=== PATIENT | female | born 1985 | race Caucasian/White ===

== ENCOUNTER 2017-12-15 19:33 | Emergency (ER) | payer SELFPAY ==
--- NOTE | 2017-12-15 21:28 | ER ---
Nurse's Notes [facility] Name: Norah David Age: 32 yrs Sex: Female : 1985 Arrival Date: 12/15/2017 Time: 19:39 Bed 8 Private MD: Diagnosis: Plantar fascial fibromatosis Presentation: 12/15 19:52 Presenting complaint: Patient states: Right leg pain from the knee down for the past 2 aj1 weeks. Reports the arch of her foot is hurting to where she cannot bear weight on it. Patient denies any injury to the right leg. Transition of care: patient was not received from another setting of care. Onset of symptoms was November 2017. Risk Assessment: Do you want to hurt yourself or someone else? Patient reports no desire to harm self or others. Initial Sepsis Screen: Does the patient meet any 2 criteria? No. Patient's initial sepsis screen is negative. Does the patient have a suspected source of infection? No. Patient's initial sepsis screen is negative. Care prior to arrival: None. 19:52 Method Of Arrival: Wheelchair aj1 19:52 Acuity: JOS 4 aj1 Triage Assessment: 19:57 General: Appears in no apparent distress. uncomfortable, Behavior is calm, cooperative, aj1 appropriate for age. Pain: Complains of pain in right leg Pain currently is 3 out of 10 on a pain scale. at worst was 10 out of 10 on a pain scale. Neuro: Level of Consciousness is awake, alert, obeys commands. Cardiovascular: Patient's skin is warm and dry. Respiratory: Airway is patent Respiratory effort is even, unlabored, Respiratory pattern is regular, symmetrical. Musculoskeletal: Reports pain with weight bearing. Injury Description: Patient denies injury. 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 - Social history:: Smoking status: Patient uses tobacco products, smokes one-half pack cigarettes per day, Patient/guardian denies using alcohol, street drugs, The patient lives with family. - Ebola Screening: : Patient denies travel to an Ebola-affected area in the 21 days before illness onset. - Family history:: not pertinent. Screenin:51 Abuse screen: Denies threats or abuse. Denies injuries from another. Nutritional aa1 screening: No deficits noted. Tuberculosis screening: No symptoms or risk factors identified. Fall Risk None identified. Assessment: 20:51 General: Appears in no apparent distress. comfortable, obese, Behavior is calm, aa1 cooperative, appropriate for age. Pain: Complains of pain in right foot, right ankle and right knee Pain began 2 weeks ago Aggravated by weight bearing. Neuro: Level of Consciousness is awake, alert, obeys commands, Oriented to person, place, time, situation. Respiratory: Airway is patent Respiratory effort is even, unlabored, Respiratory pattern is regular, symmetrical. GI: No signs and/or symptoms were reported involving the gastrointestinal system. : No signs and/or symptoms were reported regarding the genitourinary system. EENT: No signs and/or symptoms were reported regarding the EENT system. Derm: Skin is intact, is healthy with good turgor, Skin is pink, warm \T\ dry. Musculoskeletal: Circulation, motion, and sensation intact. Capillary refill < 3 seconds, Range of motion: intact in all extremities. Vital Signs: 19:57 BP 140 / 94; Pulse 89; Resp 20; Temp 98.9; Pulse Ox 98% on R/A; Weight 145.15 kg (R); aj1 Height 5 ft. 7 in. (170.18 cm) (R); Pain 3/10; 20:51 BP 138 / 97; Pulse 86; Resp 18; Pulse Ox 99% on R/A; aa1 19:57 Body Mass Index 50.12 (145.15 kg, 170.18 cm) aj1 ED Course: 19:39 Patient arrived in ED. ds1 19:56 Triage completed. aj1 19:57 Arm band placed on Patient placed in waiting room, Patient notified of wait time. aj1 20:48 Madeline Hernandez RN is Primary Nurse. aa1 20:49 Richard Parks MD is Attending Physician. ma2 20:51 Patient has correct armband on for positive identification. Bed in low position. Call aa1 light in reach. Pulse ox on. NIBP on. 21:37 No provider procedures requiring assistance completed. Patient did not have IV access lp1 during this emergency room visit. Administered Medications: 21:36 CANCELLED (Physician Discretion): Morton (7.5 mg-325 mg) 2 tabs PO once lp1 21:37 Drug: Morton (7.5 mg-325 mg) 1 tabs Route: PO; lp1 21:37 Follow up: Response: Medication administered at discharge. lp1 Outcome: 21:27 Discharge ordered by . ma2 21:37 Discharged to home via wheelchair, with friend. lp1 21:37 Condition: good 21:37 Discharge instructions given to patient, Instructed on discharge instructions, follow up and referral plans. medication usage, Demonstrated understanding of instructions, follow-up care, medications, Prescriptions given X 2. 21:38 Patient left the ED. lp1 Signatures: Chastity Rodriguez RN RN aj1 Madeline Hernandez RN RN aa1 Yana Peters ds1 Rosemary Robin RN RN lp1 Richard Parks MD MD ma2 Corrections: (The following items were deleted from the chart) 21:36 21:27 Morton (7.5 mg-325 mg) 2 tabs PO lp1 lp1
--- NOTE | 2017-12-15 21:28 | EDPHYS ---
Physician Documentation [facility] Name: Norah David Age: 32 yrs Sex: Female : 1985 Arrival Date: 12/15/2017 Time: 19:39 Bed 8 Private MD: ED Physician Richard Parks HPI: 12/15 21:24 This 32 yrs old Female presents to ER via Wheelchair with complaints of Foot ma2 Injury. 21:24 The patient presents with pain. The complaints affect the right foot. Context: arch ma2 pain x 5 weeks. Onset: The symptoms/episode began/occurred gradually. Associated signs and symptoms: Pertinent positives: Pertinent negatives: calf tenderness, fever, nausea, numbness, rash, swelling, tingling, vomiting, warmth, weakness. Severity of symptoms: At their worst the symptoms were moderate, in the emergency department the symptoms are unchanged. The patient has experienced similar episodes in the past. 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 - Social history:: Smoking status: Patient uses tobacco products, smokes one-half pack cigarettes per day, Patient/guardian denies using alcohol, street drugs, The patient lives with family. - Ebola Screening: : Patient denies travel to an Ebola-affected area in the 21 days before illness onset. - Family history:: not pertinent. ROS: 21:24 MS/extremity: Positive for pain, Negative for injury or acute deformity, abrasion, ma2 contusion, deformity, rash, swelling, tingling, warmth. 21:24 Constitutional: Negative for fever, chills, and weight loss, Abdomen/GI: Negative for abdominal pain, nausea, diarrhea, and constipation, Back: Negative for injury and pain, : Negative for injury, bleeding, discharge, and swelling, Skin: Negative for injury, rash, and discoloration, Psych: Negative for depression, anxiety, suicide ideation, homicidal ideation, and hallucinations, Endocrine: Negative for neck swelling, polydipsia, polyuria, polyphagia, and marked weight changes. 21:24 All other systems are negative. Exam: 21:24 Constitutional: This is a well developed, well nourished patient who is awake, alert, ma2 and in no acute distress. Chest/axilla: Normal chest wall appearance and motion. Nontender with no deformity. No lesions are appreciated. Cardiovascular: Regular rate and rhythm with a normal S1 and S2. No gallops, murmurs, or rubs. Normal PMI, no JVD. No pulse deficits. Respiratory: Lungs have equal breath sounds bilaterally, clear to auscultation and percussion. No rales, rhonchi or wheezes noted. No increased work of breathing, no retractions or nasal flaring. Abdomen/GI: Soft, non-tender, with normal bowel sounds. No distension or tympany. No guarding or rebound. No evidence of tenderness throughout. Back: No spinal tenderness. No costovertebral tenderness. Full range of motion. Skin: Warm, dry with normal turgor. Normal color with no rashes, no lesions, and no evidence of cellulitis. MS/ Extremity: Pulses equal, no cyanosis. Neurovascular intact. Full, normal range of motion. Neuro: Awake and alert, GCS 15, oriented to person, place, time, and situation. Cranial nerves II-XII grossly intact. Motor strength 5/5 in all extremities. Sensory grossly intact. Cerebellar exam normal. Normal gait. Vital Signs: 19:57 BP 140 / 94; Pulse 89; Resp 20; Temp 98.9; Pulse Ox 98% on R/A; Weight 145.15 kg (R); aj1 Height 5 ft. 7 in. (170.18 cm) (R); Pain 3/10; 20:51 BP 138 / 97; Pulse 86; Resp 18; Pulse Ox 99% on R/A; aa1 19:57 Body Mass Index 50.12 (145.15 kg, 170.18 cm) aj1 MDM: 20:50 Patient medically screened. ma2 21:24 Differential diagnosis: sprain, arthritis, gout, cellulitis. Data reviewed: vital ma2 signs, nurses notes. Counseling: I had a detailed discussion with the patient and/or guardian regarding: the historical points, exam findings, and any diagnostic results supporting the discharge/admit diagnosis, the presence of at least one elevated blood pressure reading (>120/80) during this emergency department visit, the need for outpatient follow up. Response to treatment: the patient's symptoms have markedly improved after treatment. Administered Medications: 21:36 CANCELLED (Physician Discretion): Rothsay (7.5 mg-325 mg) 2 tabs PO once lp1 21:37 Drug: Rothsay (7.5 mg-325 mg) 1 tabs Route: PO; lp1 21:37 Follow up: Response: Medication administered at discharge. lp1 Disposition: 12/15/17 21:27 Discharged to Home. Impression: Plantar fascial fibromatosis. - Condition is Stable. - Discharge Instructions: Plantar Fasciitis. - Prescriptions for Ibuprofen 600 mg Oral Tablet - take 1 tablet by ORAL route every 6 hours As needed take with food; 30 tablet. Prednisone 20 mg Oral Tablet - take 2 tablet by ORAL route once daily for 5 days; 10 tablet. - Medication Reconciliation Form, Thank You Letter, Antibiotic Education, Prescription Opioid Use form. - Follow up: Private Physician; When: Tomorrow; Reason: If symptoms return, Continuance of care. Signatures: Chastity Rodriguez RN RN aj1 Rosemary Robin RN RN lp1 Richard Parks MD MD ma2 Corrections: (The following items were deleted from the chart) 21:36 21:04 Rothsay (7.5 mg-325 mg) 2 tabs PO once ordered. ma2 lp1 21:36 21:27 Rothsay (7.5 mg-325 mg) 2 tabs PO once given. lp1 lp1 21:36 21:36 Rothsay (7.5 mg-325 mg) 2 tabs PO once ordered. lp1 lp1 21:38 21:27 12/15/2017 21:27 Discharged to Home. Impression: Plantar fascial fibromatosis. lp1 Condition is Stable. Forms are Medication Reconciliation Form, Thank You Letter, Antibiotic Education, Prescription Opioid Use. Follow up: Private Physician; When: Tomorrow; Reason: If symptoms return, Continuance of care. ma2
[2017-12-15] MEDS ORDERED: HYDROCODONE/APAP 7.5/325 MG TAB ONE (21:30)
[2017-12-15 21:43] VITALS: TEMP 98.9
[2017-12-15 21:44] VITALS: BP 138/97; O2SAT 99
== END 2017-12-15 21:38 | disposition home or self-care (01) ==
LOC: ER 19:33
DX: M72.2 Plantar fascial fibromatosis (principal); F17.210 Nicotine dependence, cigarettes, uncomplicated
CPT/HCPCS: 99283

== ENCOUNTER 2019-02-26 16:35 | Emergency (ER) | payer SELFPAY ==
--- OUTSIDE RECORDS SUMMARY | 2019-02-26 16:37 | XMS REPORT ---
:1985 [facility] Address [address] [place] [address] [address]. Dasilva[address] [place] [address] Care Team Providers Name Role Phone Unavailable Unavailable Unavailable Problems This patient has no known problems. Allergies, Adverse Reactions, Alerts This patient has no known allergies or adverse reactions. Medications This patient has no known medications.
[2019-02-26] MEDS ORDERED: DIPHENHYDRAMINE 50 MG/ML VIAL ONE (17:21)
[2019-02-26] MEDS ORDERED: dexAMETHasone 10 MG/ML VIAL ONE (17:21)
[2019-02-26] MEDS ORDERED: FAMOTIDINE 20 MG/2 ML VIAL IV ONE (17:22)
--- NOTE | 2019-02-26 18:04 | EDPHYS ---
Physician Documentation [facility] Name: Norah David Age: 33 yrs Sex: Female : 1985 Arrival Date: 02/26/2019 Time: 16:36 Bed 7 Private MD: ED Physician Eran Cole HPI: 02/26 22:38 This 33 yrs old Female presents to ER via Ambulatory with complaints of pm1 Allergic Reaction, Hand Swelling. 22:38 The patient presents with swelling to bilateral hands. Onset: The symptoms/episode pm1 began/occurred 2 day(s) ago. Associated signs and symptoms: Pertinent negatives: fever, nausea, vomiting. Possible causes: The patient has no known obvious cause for the symptoms. At home the patient or guardian has treated the symptoms with mother's zofran and steroid cream. Severity of symptoms: in the emergency department the symptoms are worse. The patient has not experienced similar symptoms in the past. The patient has not recently seen a physician. Historical: - Allergies: 16:41 No Known Drug Allergies; sv - PSHx: 16:41 Cholecystectomy; sv - Social history:: Smoking status: Patient uses tobacco products, smokes one-half pack cigarettes per day. - Ebola Screening: : No symptoms or risks identified at this time. ROS: 22:38 Constitutional: Negative for fever, chills, and weight loss, Cardiovascular: Negative pm1 for chest pain, palpitations, and edema, Respiratory: Negative for shortness of breath, cough, wheezing, and pleuritic chest pain, Abdomen/GI: Negative for abdominal pain, nausea, vomiting, diarrhea, and constipation, Back: Negative for injury and pain, MS/Extremity: Negative for injury and deformity. 22:38 Skin: Positive for swelling, of the right hand and left hand. 22:38 Neuro: Negative for numbness, tingling. Exam: 22:38 Constitutional: This is a well developed, well nourished patient who is awake, alert, pm1 and in no acute distress. Head/Face: Normocephalic, atraumatic. Neck: Trachea midline, no thyromegaly or masses palpated, and no cervical lymphadenopathy. Supple, full range of motion without nuchal rigidity, or vertebral point tenderness. No Meningismus. Chest/axilla: Normal chest wall appearance and motion. Nontender with no deformity. No lesions are appreciated. Cardiovascular: Regular rate and rhythm with a normal S1 and S2. No gallops, murmurs, or rubs. Normal PMI, no JVD. No pulse deficits. Respiratory: Lungs have equal breath sounds bilaterally, clear to auscultation and percussion. No rales, rhonchi or wheezes noted. No increased work of breathing, no retractions or nasal flaring. Back: No spinal tenderness. No costovertebral tenderness. Full range of motion. Skin: Warm, dry with normal turgor. Normal color with no rashes, no lesions, and no evidence of cellulitis. 22:38 Musculoskeletal/extremity: Extremities: grossly normal except: noted in the right hand and left hand: mild swelling. Vital Signs: 16:41 BP 153 / 76; Pulse 107; Resp 20; Temp 98.2(O); Pulse Ox 98% ; Weight 151.95 kg; Height sv 5 ft. 6 in. (167.64 cm); 18:14 BP 114 / 73; Pulse 94; Resp 16 S; Pulse Ox 96% on R/A; aa5 16:41 Body Mass Index 54.07 (151.95 kg, 167.64 cm) sv MDM: 17:07 Patient medically screened. pm1 17:55 Data reviewed: vital signs. Data interpreted: Pulse oximetry: on room air is 98 %. pm1 Interpretation: normal. Counseling: I had a detailed discussion with the patient and/or guardian regarding: the historical points, exam findings, and any diagnostic results supporting the discharge/admit diagnosis, the need for outpatient follow up, an allergy/station air traffic control specialist, a family practitioner, to return to the emergency department if symptoms worsen or persist or if there are any questions or concerns that arise at home. 17:55 Medication response: Improvement in swelling. Resolution of itching. pm1 14 17:14 Order name: IV Saline Lock; Complete Time: 17:30 pm1 Administered Medications: 17:25 Drug: Pepcid 20 mg Route: IVP; Site: right antecubital; aa5 18:00 Follow up: Response: No adverse reaction aa5 17:25 Drug: Benadryl 25 mg Route: IVP; Site: right antecubital; aa5 18:55 Follow up: Response: No adverse reaction aa5 17:26 Drug: Decadron - Dexamethasone 10 mg Route: IVP; Site: right antecubital; aa5 18:00 Follow up: Response: No adverse reaction aa5 Disposition: 02/26/19 17:58 Discharged to Home. Impression: Localized swelling, mass and lump, unspecified - bilateral hands, allergic reaction. - Condition is Stable. - Discharge Instructions: Allergy Skin Testing. - Prescriptions for Benadryl 25 mg Oral Capsule - take 1 capsule by ORAL route every 6 hours As needed; 30 tablet. Pepcid 20 mg Oral Tablet - take 1 tablet by ORAL route every 12 hours for 10 days; 20 tablet. Medrol (Simon) 4 mg Oral Tablets, Dose Pack - take 1 tablet by ORAL route as directed - follow package instructions; 1 packet. - Work release form, Family Work Release, Medication Reconciliation Form, Thank You Letter, Antibiotic Education, Prescription Opioid Use form. - Follow up: Emergency Department; When: As needed; Reason: Worsening of condition. Follow up: Private Physician; When: 2 - 3 days; Reason: Recheck today's complaints, Continuance of care, Re-evaluation by your physician. - Problem is new. - Symptoms have improved. Addendum: 02/28/2019 10:23 Co-signature as Attending Physician, Eran Cole MD I agree with the assessment and c perez plan of care. Signatures: Emely Wood RN RN sv Anderson, Corey, MD MD cha Calderon, Audri, RN RN aa5 Hema Irene NP FLORIST MANAGER pm1 Corrections: (The following items were deleted from the chart) 02/26 18:25 17:58 02/26/2019 17:58 Discharged to Home. Impression: Localized swelling, mass and aa5 lump, unspecified - bilateral hands, allergic reaction. Condition is Stable. Forms are Medication Reconciliation Form, Thank You Letter, Antibiotic Education, Prescription Opioid Use. Follow up: Emergency Department; When: As needed; Reason: Worsening of condition. Follow up: Private Physician; When: 2 - 3 days; Reason: Recheck today's complaints, Continuance of care, Re-evaluation by your physician. Problem is new. Symptoms have improved. pm1
--- NOTE | 2019-02-26 18:04 | ER ---
Nurse's Notes [facility] Name: Norah David Age: 33 yrs Sex: Female : 1985 Arrival Date: 02/26/2019 Time: 16:36 Bed 7 Private MD: Diagnosis: Localized swelling, mass and lump, unspecified-bilateral hands, allergic reaction Presentation: 02/26 16:40 Presenting complaint: Patient states: 1st noticed 2 days ago her right 3rd digit was sv itching, and red and then noticed last night that the rest of her fingers are swollen, red and itchy. Transition of care: patient was not received from another setting of care. Onset: The symptoms/episode began/occurred 2 day(s) ago. Anaphylaxis evaluation, no signs or symptoms of anaphylaxis were noted. Onset of symptoms was February 24, 2019. Risk Assessment: Do you want to hurt yourself or someone else? Patient reports no desire to harm self or others. Care prior to arrival: Medication(s) given: benadryl 2 tabs taken about 45 mins ago. 16:40 Method Of Arrival: Ambulatory sv 16:40 Acuity: JOS 3 sv 17:20 Initial Sepsis Screen: Does the patient meet any 2 criteria? No. Patient's initial aa5 sepsis screen is negative. Does the patient have a suspected source of infection? No. Patient's initial sepsis screen is negative. Historical: - Allergies: 16:41 No Known Drug Allergies; sv - PSHx: 16:41 Cholecystectomy; sv - Social history:: Smoking status: Patient uses tobacco products, smokes one-half pack cigarettes per day. - Ebola Screening: : No symptoms or risks identified at this time. Screenin:20 Abuse screen: Denies threats or abuse. Nutritional screening: No deficits noted. aa5 Tuberculosis screening: No symptoms or risk factors identified. Fall Risk None identified. Assessment: 17:23 General: Appears comfortable, Behavior is calm, cooperative. Pain: Denies pain. Neuro: aa5 Level of Consciousness is awake, alert, obeys commands, Oriented to person, place, time, situation. Cardiovascular: Patient's skin is warm and dry. Respiratory: Airway is patent Respiratory effort is even, unlabored, Respiratory pattern is regular, symmetrical, Breath sounds are clear bilaterally. GI: Abdomen is obese. : No signs and/or symptoms were reported regarding the genitourinary system. EENT: No signs and/or symptoms were reported regarding the EENT system. Derm: Skin is pink, warm \T\ dry. Swelling and redness noted to bilateral hands. Pt c/o itchiness to hands. Musculoskeletal: Range of motion: intact in all extremities. 18:00 Reassessment: Patient is alert, oriented x 3, equal unlabored respirations, skin aa5 warm/dry/pink. Pt denies itchiness to hands. Swelling and redness remain the same. . 18:23 Reassessment: Patient is alert, oriented x 3, equal unlabored respirations, skin aa5 warm/dry/pink. Vital Signs: 16:41 BP 153 / 76; Pulse 107; Resp 20; Temp 98.2(O); Pulse Ox 98% ; Weight 151.95 kg; Height sv 5 ft. 6 in. (167.64 cm); 18:14 BP 114 / 73; Pulse 94; Resp 16 S; Pulse Ox 96% on R/A; aa5 16:41 Body Mass Index 54.07 (151.95 kg, 167.64 cm) sv ED Course: 16:36 Patient arrived in ED. as 16:41 Triage completed. sv 16:42 Arm band placed on. sv 17:06 Hema Irene NP is PHCP. pm1 17:06 Eran Cole MD is Attending Physician. pm1 17:07 Hema Irene NP is PHCP. pm1 17:10 Andrea Davey, BUBBA is Primary Nurse. bp 17:20 Patient has correct armband on for positive identification. Bed in low position. Call aa5 light in reach. Side rails up X2. Pulse ox on. NIBP on. 17:23 No provider procedures requiring assistance completed. Inserted saline lock: 20 gauge aa5 in right antecubital area, using aseptic technique. 17:29 Primary Nurse role handed off by Andrea Davey, BUBBA aa5 17:29 Desi Rodriguez, BUBBA is Primary Nurse. aa5 18:23 IV discontinued, intact, bleeding controlled, No redness/swelling at site. Pressure aa5 dressing applied. Administered Medications: 17:25 Drug: Pepcid 20 mg Route: IVP; Site: right antecubital; aa5 18:00 Follow up: Response: No adverse reaction aa5 17:25 Drug: Benadryl 25 mg Route: IVP; Site: right antecubital; aa5 18:55 Follow up: Response: No adverse reaction aa5 17:26 Drug: Decadron - Dexamethasone 10 mg Route: IVP; Site: right antecubital; aa5 18:00 Follow up: Response: No adverse reaction aa5 Outcome: 17:58 Discharge ordered by MD. pm1 18:23 Discharged to home via wheelchair, with significant other. aa5 18:23 Condition: improved 18:23 Discharge instructions given to patient, Instructed on discharge instructions, follow up and referral plans. medication usage, Demonstrated understanding of instructions, follow-up care, medications, Prescriptions given X 3. 18:25 Patient left the ED. aa5 Signatures: Emely Wood, RN RN Kezia Wade Audri RN RN aa5 Hema Irene, SAILOR SAILOR pm1 Andrea Davey RN RN bp Corrections: (The following items were deleted from the chart) 16:42 16:40 Care prior [facility] 18:53 18:30 IV discontinued, intact, bleeding controlled, No redness/swelling at site. aa5 Pressure dressing applied, aa5
[2019-02-26 20:27] VITALS: BP 153/76; TEMP 98.2; O2SAT 98
== END 2019-02-26 18:25 | disposition home or self-care (01) ==
LOC: ER 16:35
DX: R22.33 Localized swelling, mass and lump, upper limb, bilateral (principal); T78.40XA Allergy, unspecified, initial encounter; F17.210 Nicotine dependence, cigarettes, uncomplicated
CPT/HCPCS: 96374; 96375; 99284; J1100; J1200

== ENCOUNTER 2019-08-30 13:37 | Observation (INO) | payer BC, SELFPAY ==
--- OUTSIDE RECORDS SUMMARY | 2019-08-30 15:38 | XMS REPORT | Continuity of Care Document ---
:1985 Author Organization [facility] t Address [facility] Chandra [address] [place] [id number] Care Team Providers Name Role Phone Unavailable Unavailable Unavailable Problems This patient has no known problems. Allergies, Adverse Reactions, Alerts This patient has no known allergies or adverse reactions. Medications This patient has no known medications. Procedures This patient has no known procedures. Results This patient has no known results.
[2019-08-30 15:55] LABS: Absolute Lymphocytes (CBC) 1.9 K/uL (0.7-4.9); Basophils % 0.5 % (0-1.3); Hematocrit 40.7 % (36.0-45.0); Lymphocytes % 23.1 % (15.3-44.8); MPV 8.6 fL (7.6-11.3); RBC Red Blood Cell Count 4.53 M/uL (3.86-4.86)
[2019-08-30] MEDS ORDERED: NA CHLORIDE 0.9% 1,000 ML ONE (15:56)
[2019-08-30] MEDS ORDERED: ONDANSETRON 4 MG/2 ML VIAL ONE (15:56)
[2019-08-30] MEDS ORDERED: CEFAZOLIN/SWI 1gm 1 GM/10 ML SYR ONE (15:56)
[2019-08-30] MEDS ORDERED: MORPHINE 2 MG/ML SYR ONE (15:56)
[2019-08-30 16:29] LABS: Albumin 3.4 g/dL (3.4-5.0); Bilirubin Total 0.3 mg/dL (0.2-1.0); Protein, Total 7.9 g/dL (6.4-8.2)
--- NOTE | 2019-08-30 17:14 | RAD REPORT ---
EXAM DESCRIPTION: US - Extremity Nonvascular Limited - 08/30/2019 5:06 pm CLINICAL HISTORY: Pain;Swelling COMPARISON: No comparisons TECHNIQUE: Real-time sonographic evaluation of the area of interest was performed. FINDINGS: Complex subcutaneous fluid collection is present measures 3.1 x 2.7 x 1.3 cm right breast, likely representing an abscess.
--- NOTE | 2019-08-30 17:21 | ER ---
Nurse's Notes [facility] Name: Norah David Age: 34 yrs Sex: Female : 1985 Arrival Date: 08/30/2019 Time: 13:41 Bed 24 Private MD: Diagnosis: Mastodynia-right BREAST ABSCESS, 3 CM Presentation: 08/29 14:00 Chief complaint: Patient states: Right breast pain swelling for 1 day. States she has ll1 had trouble with that nipple since piercing was removed. No fever. No drainage. Coronavirus screen: Proceed with normal triage. Patient denies a cough. Patient denies shortness of breath or difficulty breathing. Patient denies measured and/or subjective temperature greater than 100.4F prior to today's visit. Patient denies travel on a cruise ship or to a country the [facility] currently lists as an affected area. Patient denies contact with known and/or suspected case of COVID-19. Ebola Screen: Patient denies travel to an Ebola-affected area in the 21 days before illness onset. Initial Sepsis Screen: Does the patient meet any 2 criteria? HR > 90 bpm. No. Patient's initial sepsis screen is negative. Does the patient have a suspected source of infection? Yes: Skin breakdown/wound. Risk Assessment: Do you want to hurt yourself or someone else? Patient reports no desire to harm self or others. Onset of symptoms was August 30, 2019. 14:00 Method Of Arrival: Ambulatory ll1 14:00 Acuity: JOS 3 ll1 Historical: - Allergies: 14:03 No Known Drug Allergies; ll1 - PSHx: 14:03 Cholecystectomy; ll1 - Immunization history:: Adult Immunizations up to date, Last tetanus immunization: < 5 years ago. - Social history:: Smoking status: Patient reports the use of cigarette tobacco products, smokes one-half pack cigarettes per day, Patient denies any tobacco usage or history of. Patient/guardian denies using alcohol, street drugs. - Family history:: not pertinent. Screenin:30 Abuse screen: Denies threats or abuse. Nutritional screening: No deficits noted. vc Tuberculosis screening: No symptoms or risk factors identified. Fall Risk None identified. Assessment: 14:30 General: Appears in no apparent distress. uncomfortable, obese, Behavior is calm, vc cooperative, appropriate for age. Pain: Complains of pain in right nipple. Neuro: Level of Consciousness is awake, alert, obeys commands, Oriented to person, place, time, situation, Appropriate for age. Neuro: Cardiovascular: Capillary refill < 3 seconds Patient's skin is warm and dry. Cardiovascular: Cardiovascular: Edema to right breast. Respiratory: Respiratory effort is even, unlabored, Respiratory pattern is regular, symmetrical. GI: No signs and/or symptoms were reported involving the gastrointestinal system. : No signs and/or symptoms were reported regarding the genitourinary system. Derm: Skin temperature is warm Wound noted right breast and right nipple. 15:30 Reassessment: Patient appears in no apparent distress at this time. Patient and/or vc family updated on plan of care and expected duration. Pain level reassessed. Patient is alert, oriented x 3, equal unlabored respirations, skin warm/dry/pink. 16:30 Reassessment: Patient appears in no apparent distress at this time. Patient and/or vc family updated on plan of care and expected duration. Pain level reassessed. Patient is alert, oriented x 3, equal unlabored respirations, skin warm/dry/pink. 17:30 Reassessment: Patient appears in no apparent distress at this time. Patient and/or vc family updated on plan of care and expected duration. Pain level reassessed. Patient is alert, oriented x 3, equal unlabored respirations, skin warm/dry/pink. Patient states feeling better. Patient states symptoms have improved. Vital Signs: 14:00 BP 150 / 96; Pulse 100; Resp 18; Temp 97.7; Pulse Ox 100% ; Pain 9/10; ll1 18:00 BP 118 / 86; Pulse 86; Resp 17; Pulse Ox 98% on R/A; vc ED Course: 13:41 Patient arrived in ED. as 14:02 Triage completed. ll1 14:04 Arm band placed on Patient notified of wait time. ll1 14:29 Eran Cole MD is Attending Physician. [facility] 14:49 Cristy Hauser RN is Primary Nurse. vc 15:48 Initial lab(s) drawn, by me, sent to lab. Inserted saline lock: 20 gauge in right jp3 antecubital area, using aseptic technique. Blood collected. Patient maintains SpO2 saturation greater than 95% on room air. 15:49 Placed in gown. Bed in low position. Call light in reach. Side rails up X 1. Warm jp3 blanket given. Verbal reassurance given. Pulse ox on. NIBP on. 16:30 chaperoned for breast exam. vc 17:07 US Extrmty Nonvasular Limited: right breast In Process Unspecified. EDSC 17:14 Osmar Whiting MD is Hospitalizing Provider. catherine 18:15 Patient admitted, IV remains in place. vc Administered Medications: 16:13 Drug: Zofran (Ondansetron) 4 mg Route: IVP; Site: right antecubital; vc 16:13 Drug: Ancef 1 grams Route: IVPB; Site: right antecubital; vc 16:16 Drug: NS 0.9% 1000 ml Route: IV; Rate: 1 bolus; Site: right antecubital; vc 16:16 Drug: morphine 2 mg Route: IVP; Site: right antecubital; vc 17:37 Drug: Clindamycin 900 mg Route: IVPB; Infused Over: 30 mins; Site: right antecubital; vc Outcome: 17:20 Decision to Hospitalize by Provider. catherine 18:15 Admitted to Med/surg accompanied by tech, via wheelchair. vc 18:15 Condition: good 18:15 Instructed on the need for admit, Demonstrated understanding of instructions. 18:16 Patient left the ED. vc Signatures: Dispatcher [employer] Eran Jones MD MD cha Martinez, Amelia as Pisarski, Jacob jp3 Cristy Hauser RN RN Dinah Bertrand RN RN ll1
--- NOTE | 2019-08-30 17:21 | EDPHYS ---
Physician Documentation [facility] Name: Norah David Age: 34 yrs Sex: Female : 1985 Arrival Date: 08/30/2019 Time: 13:41 Bed 24 Private MD: PORFIRIO Physician Eran Cole HPI: 08/29 15:31 This 34 yrs old Female presents to ER via Ambulatory with complaints of catherine Breast Problem. 15:31 the patient presents with a swollen area of the right nipple. Description: The affected catherine area is moderate sized, localized, draining, erythematous. Onset: The symptoms/episode began/occurred 6 month(s) ago. Possible cause(s): unknown. Associated signs and symptoms: Pertinent positives: drainage. Modifying factors: the symptoms are alleviated by nothing, remaining still, the symptoms are aggravated by movement, pressure, squeezing the lesion and expressing the contents, touching. Severity of symptoms: At their worst the symptoms were moderate, in the emergency department the symptoms are unchanged. The patient has experienced similar episodes in the past, multiple times. Historical: - Allergies: 14:03 No Known Drug Allergies; ll1 - PSHx: 14:03 Cholecystectomy; ll1 - Immunization history:: Adult Immunizations up to date, Last tetanus immunization: < 5 years ago. - Social history:: Smoking status: Patient reports the use of cigarette tobacco products, smokes one-half pack cigarettes per day, Patient denies any tobacco usage or history of. Patient/guardian denies using alcohol, street drugs. - Family history:: not pertinent. ROS: 15:31 Constitutional: Negative for fever, chills, and weight loss, Eyes: Negative for injury, catherine pain, redness, and discharge, ENT: Negative for injury, pain, and discharge, Neck: Negative for injury, pain, and swelling, Cardiovascular: Negative for chest pain, palpitations, and edema, Respiratory: Negative for shortness of breath, cough, wheezing, and pleuritic chest pain, Abdomen/GI: Negative for abdominal pain, nausea, vomiting, diarrhea, and constipation, Back: Negative for injury and pain, : Negative for injury, bleeding, discharge, and swelling, MS/Extremity: Negative for injury and deformity, Neuro: Negative for headache, weakness, numbness, tingling, and seizure, Psych: Negative for depression, anxiety, suicide ideation, homicidal ideation, and hallucinations, Allergy/Immunology: Negative for hives, rash, and allergies, Endocrine: Negative for neck swelling, polydipsia, polyuria, polyphagia, and marked weight changes, Hematologic/Lymphatic: Negative for swollen nodes, abnormal bleeding, and unusual bruising. 15:31 Skin: Positive for swelling, of the left nipple. Exam: 15:31 Constitutional: This is a well developed, well nourished patient who is awake, alert, catherine and in no acute distress. Head/Face: Normocephalic, atraumatic. Eyes: Pupils equal round and reactive to light, extra-ocular motions intact. Lids and lashes normal. Conjunctiva and sclera are non-icteric and not injected. Cornea within normal limits. Periorbital areas with no swelling, redness, or edema. ENT: Nares patent. No nasal discharge, no septal abnormalities noted. Tympanic membranes are normal and external auditory canals are clear. Oropharynx with no redness, swelling, or masses, exudates, or evidence of obstruction, uvula midline. Mucous membranes moist. Neck: Trachea midline, no thyromegaly or masses palpated, and no cervical lymphadenopathy. Supple, full range of motion without nuchal rigidity, or vertebral point tenderness. No Meningismus. Cardiovascular: Regular rate and rhythm with a normal S1 and S2. No gallops, murmurs, or rubs. Normal PMI, no JVD. No pulse deficits. Respiratory: Lungs have equal breath sounds bilaterally, clear to auscultation and percussion. No rales, rhonchi or wheezes noted. No increased work of breathing, no retractions or nasal flaring. Abdomen/GI: Soft, non-tender, with normal bowel sounds. No distension or tympany. No guarding or rebound. No evidence of tenderness throughout. Skin: Warm, dry with normal turgor. Normal color with no rashes, no lesions, and no evidence of cellulitis. MS/ Extremity: Pulses equal, no cyanosis. Neurovascular intact. Full, normal range of motion. Neuro: Awake and alert, GCS 15, oriented to person, place, time, and situation. Cranial nerves II-XII grossly intact. Motor strength 5/5 in all extremities. Sensory grossly intact. Cerebellar exam normal. Normal gait. Psych: Awake, alert, with orientation to person, place and time. Behavior, mood, and affect are within normal limits. 15:31 Chest/axilla: Inspection: left breast swelling , dc, 3x4 cm. Vital Signs: 14:00 BP 150 / 96; Pulse 100; Resp 18; Temp 97.7; Pulse Ox 100% ; Pain 9/10; ll1 18:00 BP 118 / 86; Pulse 86; Resp 17; Pulse Ox 98% on R/A; vc MDM: 14:29 Patient medically screened. [facility] 17:20 Data reviewed: vital signs, nurses notes, lab test result(s), radiologic studies, [facility] ultrasound. Data interpreted: monitor technician: rate is 100 beats/min, rhythm is normal sinus rhythm, Pulse oximetry: on room air is 100 %. 17:21 Counseling: I had a detailed discussion with the patient and/or guardian regarding: the [facility] historical points, exam findings, and any diagnostic results supporting the discharge/admit diagnosis, lab results, radiology results, the need for further work-up and treatment in the hospital. ED course: LEFT BREAST MASS, 3 CM PAINFUL , DRAINING, DW DR REILLY, ADMIT AND NPO AT MIDNIGHT, IV ABX. 08/29 15:31 Order name: CBC with Diff; Complete Time: 16:18 [facility] 08/29 15:31 Order name: Comprehensive Metabolic Panel; Complete Time: 17:12 [facility] 08/29 15:31 Order name: US Extrmty Nonvasular Limited: right breast [facility] 08/29 16:14 Order name: Urine --Ancillary (enter results) 08/29 16:14 Order name: Urine Dipstick--Ancillary (enter results) 08/29 15:31 Order name: Urine Dipstick-Ancillary (obtain specimen); Complete Time: 16:13 [facility] 08/29 15:31 Order name: Urine Test (obtain specimen); Complete Time: 16:13 [facility] Administered Medications: 16:13 Drug: Zofran (Ondansetron) 4 mg Route: IVP; Site: right antecubital; vc 16:13 Drug: Ancef 1 grams Route: IVPB; Site: right antecubital; vc 16:16 Drug: NS 0.9% 1000 ml Route: IV; Rate: 1 bolus; Site: right antecubital; vc 16:16 Drug: morphine 2 mg Route: IVP; Site: right antecubital; vc 17:37 Drug: Clindamycin 900 mg Route: IVPB; Infused Over: 30 mins; Site: right antecubital; vc Disposition: 08/30/19 17:20 Hospitalization ordered by Osmar Reilly for Observation. Preliminary diagnosis is Mastodynia - right BREAST ABSCESS, 3 CM. - Bed requested for Telemetry/MedSurg (observation). - Status is Observation. vc - Condition is Stable. - Problem is new. - Symptoms have improved. Signatures: Dispatcher [employer] EDWY Eran Cole MD MD cha Botello, Elizabeth eb Calcote, Vanessa, RN RN Dinah Bertrand RN RN ll1 Corrections: (The following items were deleted from the chart) 15:37 15:32 Extrmty Nonvasular Limited+US.RAD.BRZ ordered. [facility] 17:49 17:20 Hospitalization Ordered by Osmar Reilly MD for Observation. Preliminary eb diagnosis is Mastodynia - LEFT BREAST ABSCESS, 3 CM. Bed requested for Telemetry/MedSurg (observation). Status is Observation. Condition is Stable. Problem is new. Symptoms have improved. catherine 18:10 17:49 08/30/2019 17:20 Hospitalization Ordered by Osmar Reilly MD for Observation. catherine Preliminary diagnosis is Mastodynia - LEFT BREAST ABSCESS, 3 CM. Bed requested for Telemetry/MedSurg (observation). Status is Observation. Condition is Stable. Problem is new. Symptoms have improved. eb 18:16 18:10 08/30/2019 17:20 Hospitalization Ordered by Osmar Reilly MD for Observation. vc Preliminary diagnosis is Mastodynia - right BREAST ABSCESS, 3 CM. Bed requested for Telemetry/MedSurg (observation). Status is Observation. Condition is Stable. Problem is new. Symptoms have improved. catherine
[2019-08-30] MEDS ORDERED: CLINDAMYCIN 900MG/D5W 900 MG/50 ML IVPB IV ONE (17:36)
[2019-08-30] MEDS ORDERED: ONDANSETRON 4 MG/2 ML VIAL IV PRN (18:22)
[2019-08-30] MEDS ORDERED: ACETAMINOPHEN 325 MG TABLET PO PRN (18:29)
[2019-08-30] MEDS: NA CHLORIDE 0.9% 1,000 ML IV SCH (18:34)
[2019-08-30 19:43] VITALS: BMI 56.5
[2019-08-30] MEDS: MORPHINE 4 MG/ML SYR IV PRN (21:21)
[2019-08-31] MEDS: CEFAZOLIN/SWI 1gm 1 GM/10 ML SYR IVP SCH ×3 (00:34→12:10)
[2019-08-31] MEDS: CLINDAMYCIN INJ 900 MG in NA CHLORIDE 0.9% 50 ML IV SCH ×2 (00:35→07:46)
[2019-08-31] MEDS: MORPHINE 4 MG/ML SYR IV PRN ×2 (00:59→12:09)
--- NOTE | 2019-08-31 01:23 | HP ---
Date of Admission: 08/30/2019 Diagnosis: Right breast cellulitis and abscess, mastitis. History Of Present Illness: This is case of a 34-year-old patient, states she developed swelling of the right breast region associated with purulent discharge and redness. She does not remember any tr auma. She does not remember any masses there in that area. She denies any dysuria, hematuria, hemat ochezia, or melena. Denies any recent traveling out of the country. Denies any family member sick a t home. Denies any bloody nipple discharge. She used to have a nipple kinney in the past, but not a ny more. Past Medical History: None. Surgeries: None. Allergies: NONE. Social History: She does smoke. She does not drink alcohol. Family History: No history of breast cancer. Review of Systems: Ten points otherwise unremarkable. Physical Examination: General: Patient is awake and alert. HEENT: Pupils are equal and reactive, anicteric. Neck: Supple. Chest: Clear. Abdomen: Soft and depressible. Breasts: Patient has induration of about 10 x 7 cm on the right breast the area near the areolar com plex. It is tender and has some fluctuance present. No discharge at this moment. Pelvic: Deferred. Rectal: Deferred. Extremities: Good capillary refill. Neurologic: Cranial nerves 2 through 12 grossly within normal limits. Laboratory Data: WBC count of 8.3, hemoglobin of 13.9, platelets of 232 and BUN is 9. Urine pregnan cy is still pending. Ultrasound shows complex subcutaneous fluid collection present on the right tapan ast consistent with an abscess. Assessment: This is a 34-year-old patient with cellulitis and abscess of the right breast. The priyanka ent will be admitted, started on antibiotics since she ate before she wants do this under anesthesia so we going to keep her n.p.o. after midnight. Then, we are going to proceed with incision and drain age of right breast abscess with benefits, alternatives, and risks including, but not limited to infe ction, bleeding, damage to adjacent structures, anesthesia complication, nonhealing wound, myocardial infarction, and even . She also understands this may not relieve the symptoms. She might need more than one surgical intervention. She understood. OG/BHUPINDER Voice ID: [id number]
[2019-08-31] MEDS: NA CHLORIDE 0.9% 1,000 ML IV SCH ×2 (01:38→10:22)
[2019-08-31 05:59] LABS: Absolute Lymphocytes (CBC) 1.7 K/uL (0.7-4.9); Basophils % 0.3 % (0-1.3); Hematocrit 37.1 % (36.0-45.0); Lymphocytes % 26.9 % (15.3-44.8); MPV 8.7 fL (7.6-11.3); RBC Red Blood Cell Count 4.11 M/uL (3.86-4.86)
[2019-08-31] MEDS ORDERED: FENTANYL CITR 100 MCG/2 ML ONE (08:27)
[2019-08-31] MEDS ORDERED: LIDOCAINE 1% MPF 5 ML VIAL ONE (08:28)
[2019-08-31] MEDS ORDERED: MIDAZOLAM HCL 2 MG/2 ML INJ ONE (08:28)
[2019-08-31] MEDS ORDERED: propofoL 200 MG/20 ML VIAL IV ONE ×2 (08:28→09:44)
[2019-08-31] MEDS ORDERED: Ringers Lactate 1,000 ML IV ONE (08:47)
[2019-08-31] MEDS ORDERED: BUPIVACAINE 0.5% PF 10 ML VIAL ONE (08:48)
[2019-08-31] MEDS ORDERED: ROCURONIUM 50 MG/5 ML VIAL IV ONE (09:30)
[2019-08-31] MEDS ORDERED: ALBUTEROL INHALER 60 PUFF/8 GM IH ONE (09:44)
[2019-08-31] MEDS ORDERED: ONDANSETRON 4 MG/2 ML VIAL ONE (09:45)
[2019-08-31] MEDS ORDERED: dexAMETHasone 10 MG/ML VIAL ONE (09:45)
[2019-08-31] MEDS ORDERED: KETOROLAC 30 MG/ML INJ ONE (09:45)
--- NOTE | 2019-08-31 09:55 | P.BOP ---
Preoperative diagnosis: Right breast cellulitis, MAstitis, abscess Postoperative diagnosis: same Primary procedure: 1. Incision and drainage of complex Right breast abscess 10x 7 cm Secondary procedure: 2. Right breast incisional biopsy Estimated blood loss: <10cc Specimen: bx and culture Findings: abcess cavity with induration Anesthesia: General Complications: None Drain(s): Other Transferred to: Recovery Room Condition: Good
[2019-08-31] MEDS ORDERED: NALOXONE 0.4 MG/ML VIAL ONE (10:12)
[2019-08-31] MEDS ORDERED: SUCCINYLCHOLINE 20 MG/ML (10 ML) IV ONE (10:23)
[2019-08-31 10:43] VITALS: O2SAT 97
[2019-08-31 12:40] VITALS: BP 126/68; TEMP 98
--- NOTE | 2019-09-12 11:28 | OP ---
Date of Procedure: 08/31/2019 Surgeon: Osmar Whiting MD Preoperative Diagnosis: Right breast cellulitis, mastitis, abscess. Postoperative Diagnosis: Right breast cellulitis, mastitis, abscess. Procedure Performed: Incision and drainage of complex right breast abscess 10 x 7 cm, right breast i ncisional biopsy. Estimated Blood Loss: Less than 10 mL. Specimen: Biopsy and culture. Finding: Abscess cavity with overnight induration. Biopsy was done. Anesthesia: General plus local. Indications: This is the case of a female who comes to us with above diagnosis. Fully explained the benefits, alternatives, and risks of incision and drainage of her right breast abscess with also inc isional biopsy, which include but not limited to infection, bleeding, damage to adjacent structures, anesthesia complication, nonhealing wound, CA, and even . She also understands this may not rel ieve any symptoms, she might need more than one surgical intervention. She understands the importanc e of following up with Pathology, also being compliant with antibiotics and wound care after surgery since she is going to need packing. She signed the consent. The area of concern was marked by me kathleen d the patient in the holding room. Description Of Procedure: Patient was brought to the operating room, placed in supine position. Ane sthesia was done without complication. A time-out was called. The right breast was prepped and drap ed in a sterile fashion. Marcaine 0.5% was injected for local anesthetic, followed by sharp incision of the skin and dilated into multiple loculations abscess. All loculations were explored and opened . Pus was removed. The area was cultured. We also did incisional biopsy of the induration to rule out neoplasia. The area was profusely irrigated. Hemostasis obtained. The area was packed with wet -to-dry dressing. Patient tolerated the procedure well. Patient was sent to Recovery in stable cond ition. OG/BHUPINDER Voice ID: [id number] Report ID: [id number]
== END 2019-08-31 14:27 | disposition home or self-care (01) ==
LOC: ER 13:37 → ERHOLD 17:37 → 2ND 18:08
PROVIDERS: ADMIT Surgery; ATTEND Surgery
PROC: 0HBT0ZX Excision of Right Breast, Open Approach, Diagnostic (ICD-10-PCS; 2019-08-31)
PROC: 0H9T0ZZ Drainage of Right Breast, Open Approach (ICD-10-PCS; principal; 2019-08-31 10:00)
DX: N61.1 Abscess of the breast and nipple (principal); Z11.59 Encounter for screening for other viral diseases; F17.210 Nicotine dependence, cigarettes, uncomplicated
CPT/HCPCS: 87070; 85025 ×2; 80048; 36415; 87205; 84703; 88305; 87075; 80053; 76882; 96375; 96374; 99285; 19101; 10061; U0002; J2704 ×2; J2310; J0330; J2250; J3010; J1100; J2270; J0690 ×2; J7120; J7030 ×3; J2405 ×2; G0378 ×3

== ENCOUNTER 2020-03-10 09:59 | Emergency (ER) | payer BC ==
--- OUTSIDE RECORDS SUMMARY | 2020-03-10 10:01 | XMS REPORT | Summary of Care ---
:1985 Author Organization [facility] Address [address] [place] [id number] Care Team Providers Name Role Phone Sahni Primary Care Provider Reason for Visit Reason Comments Rash to eyelids & behind ears Auth/Cert Status Reason Specialty Diagnoses / Referred By Referred To Procedures Contact Contact Emergency Medicine Ad[facility] Em ergency Dept [address] [place] [address] Fax: Encounter Details Date Type Department Care Team Description 03/08/2020 Emergency ADC-Emergency Ramakrishna Gutierrez PAC Allergic dermatitis Department [address] (Primary Dx) [address] [place], [place] [address] [phone] [place] [address] [phone] Allergies No Known Allergiesdocumented as of this encounter (statuses as of 03/08/2020) Medications Medication Sig Dispensed Refills Start Date End Date Status predniSONE 20 mg Take 2 tablets 8 tablet 0 03/06/2020 Active tabletIndications: by mouth once Allergic reaction, daily for 4 days initial encounter famotidine (PEPCID) 20 Take 1 tablet by 14 tablet 0 03/06/2020 Active mg tabletIndications: mouth 2 (two) Allergic reaction, times daily. initial encounter diphenhydrAMINE Take 1 capsule 28 capsule 0 03/06/2020 020 Active (BENADRYL) 25 mg by mouth every 6 capsuleIndications: (six) hours as Allergic reaction, needed for initial encounter Allergies for up to 7 days. documented as of this encounter (statuses as of 03/08/2020) Active Problems No known active problemsdocumented as of this encounter (statuses as of 03/08/2020) Immunizations Name Administration Dates Next Due Td 01/16/2019 documented as of this encounter Social History Tobacco Use Types Packs/Day Years Used Date Never Assessed Sex Assigned at Date Recorded Not on file COVID-19 Exposure Response Date Recorded In the last month, have you been in contact with No / Unsure 03/08/2020 7:23 PM MANAGER PRIMARY someone who was confirmed or suspected to have Coronavirus / COVID-19? documented as of this encounter Last Filed Vital Signs Vital Sign Reading Time Taken Comments Blood Pressure 156/103 03/08/2020 7:27 PM MANAGER PRIMARY Pulse 85 03/08/2020 7:27 PM MANAGER PRIMARY Temperature 37.1 C (98.8 F) 03/08/2020 7:27 PM MANAGER PRIMARY Respiratory Rate 18 03/08/2020 7:27 PM MANAGER PRIMARY Oxygen Saturation 98% 03/08/2020 7:27 PM MANAGER PRIMARY Inhaled Oxygen Concentration - - Weight 176.9 kg (390 lb) 03/08/2020 7:27 PM MANAGER PRIMARY Height 170.2 cm (5' 7") 03/08/2020 7:27 PM MANAGER PRIMARY Body Mass Index 61.08 03/08/2020 7:27 PM MANAGER PRIMARY documented in this encounter Discharge Instructions Ramakrishna Beavers PAC - 03/08/2020Continue on current medications: Prednisone 40mg daily Benadryl and pepcid. Return to ED for respiratory distress. Follow-up with PCP for persistent rash. documented in this encounter ED Notes Lary Rudolph RN - 03/08/2020 7:23 PM CSTCC: Seen here for allergic reaction to "decorative boxes" on Thursday. Today started having hives on eyelids and behind both ears. PMHx: HTN, insuline resistant. migraine PSH:harley MEDS: topamax, pepcid, meloxicam, valsartan, toradol, farxiga, metformin, trazadone LMP: 2 weeks ago Tetanus: utd Awake, alert, oriented, resp reg unlabored, skin warm & dry, color appropriate for race, moves all ext without difficulty, amb with out assist Appears in no distress GER PRIMARY documented in this encounter Miscellaneous Notes ED Nurse Note - Lary Rudolph RN - 03/08/2020 7:54 PM CSTPt given printed and verbal discharge instructions regarding allergic dermatitis, encouraged hydration, Continue medication prescribed from previous visit Discussed ibuprofen and to take with food to avoid GI distress. 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 Advised to seek medical attention for new/prolonged/worsening of symptoms, Symptoms improved Awake, alert oriented, resp reg unlabored, skin w/d, pt leaving amb with steady gait, in no apparent distress, D Nurse Note - Lary Rudolph RN - 03/08/2020 7:32 PM CSTProvider at bedside GER PRIMARY documented in this encounter Plan of Treatment Health Maintenance Due Date Last Done Comments VARICELLA VACCINES (1 of 2 - 1986 2-dose childhood series) Depression Screening 1997 DTaP,Tdap,and Td Vaccines (1 - 02/28/2004 01/16/2019 Tdap) PAP SMEAR 2006 INFLUENZA VACCINE Completed 02/20/2020 PNEUMOCOCCAL 0-64 YEARS COMBINED Aged Out No longer eligible based on SERIES patient's age to complete this topic documented as of this encounter Results Not on filedocumented in this encounter Visit Diagnoses Diagnosis Allergic dermatitis - Primary Contact dermatitis and other eczema, due to unspecified cause documented in this encounter Insurance Payer Benefit Plan Subscriber ID Effective Dates Phone Address Type / Group [facility] [id number] 2019-Jason [phone] [address] PPO/POS [place] - OUT OF t [id number] [place] [address] [phone] [id number] (Work) documented as of this encounter
--- OUTSIDE RECORDS SUMMARY | 2020-03-10 10:01 | XMS REPORT | Summary of Care ---
:1985 Author Organization [facility] - Health Address [address] [place] [address] Care Team Providers Name Role Phone Sahni Primary Care Provider Reason for Visit Reason Comments Other allergic reaction Auth/Cert Status Reason Specialty Diagnoses / Referred By Referred To Procedures Contact Contact Emergency Medicine [facility] Em ergency Dept [address] [place] [address] Fax: Encounter Details Date Type Department Care Team Description 03/06/2020 Emergency [facility]-Emergency Frandy Harvey F NP Allergic reaction, Department [address] [place] [address]. initial encounter [address] [place], [place] (Primary Dx) [address] [address] [place] [id number] Allergies No Known Allergiesdocumented as of this encounter (statuses as of 03/06/2020) Medications Medication Sig Dispensed Refills Start Date [...] as of this encounter (statuses as of 03/06/2020) Active Problems No known active problemsdocumented as of this encounter (statuses as of 03/06/2020) Immunizations Name Administration Dates Next Due Td 01/16/2019 documented as of this encounter Social History Tobacco Use Types Packs/Day Years Used Date Never Assessed Sex Assigned at Date Recorded Not on file COVID-19 Exposure Response Date Recorded In the last month, have you been in contact with No / Unsure 03/06/2020 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 documented as of this encounter Last Filed Vital Signs Vital Sign Reading Time Taken Comments Blood Pressure 129/77 03/06/2020 9:25 PM TRAILER ASSEMBLER Pulse 94 03/06/2020 9:25 PM TRAILER ASSEMBLER Temperature 37.6 C (99.7 F) 03/06/2020 7:25 PM TRAILER ASSEMBLER Respiratory Rate 18 03/06/2020 9:25 PM TRAILER ASSEMBLER Oxygen Saturation 97% 03/06/2020 9:25 PM TRAILER ASSEMBLER Inhaled Oxygen Concentration - - Weight 176.9 kg (390 lb) 03/06/2020 7:22 PM TRAILER ASSEMBLER Height 167.6 cm (5' 6") 03/06/2020 7:22 PM TRAILER ASSEMBLER Body Mass Index 62.95 03/06/2020 7:22 PM TRAI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 Discharge Instructions Frandy Leal FNP - 03/06/2020DIAGNOSIS 1. Allergic reaction NO LIFE-THREATENING FINDINGS ON TODAY'S EXAM. PROCEDURES IN THE ER TODAY: Emergency medical evaluation MEDICATIONS ADMINISTERED IN THE ER TODAY: Prednisone Benadryl Pepcid YOUR PRESCRIPTIONS AND [id number] MEDICATION RECOMMENDATIONS: Benadryl every 6 hours Prednisone daily Pepcid FOLLOW-UP RECOMMENDATIONS: RECOMMEND FOLLOW-UP WITH A PRIMARY CARE PROVIDER OR SPECIALIST IN 2-5 DAYS, ESPECIALLY IF NO IMPROVEMENT IN SYMPTOMS. MAY FOLLOW-UP WITH A PROVIDER OF YOUR CHOICE, SUCH : 1. A PHYSICIAN OF YOUR CHOICE 2. [facility], . LOCATIONS IN [facility] 3. [facility], [address] [place] [address]; [phone] OR, IF YOU WISH TO FOLLOW-UP WITHIN THE [facility], MAY TRY THESE OPTIONS (CLINIC APPOINTMENTS AVAILABLE ON [id number] BASIS): 1. SCHEDULE AN APPOINTMENT ONLINE AT [email or web address] 2. OR CALL THE [facility] ACCESS CENTER AT OR 3. OR CALL YOUR [facility] PHYSICIAN'S OFFICE DIRECTLY IF YOU ARE ALREADY AN ESTABLISHED [facility] PATIENT. RETURN TO ER FOR WORSENING OF SYMPTOMS. AttachmentsThe following attachments cannot be sent through Care Everywhere. Allergic Reactions, General (Tanzanian)documented in this encounter ED Notes Devante Fuentes RN - 03/06/2020 7:17 PM CSTPatient was moving some decorative boxes yesterday. And noticed swellings on bilateral hands. Patient took unknown amount of benadryl. Patient rubbed hands on patient face. Patient lips started to swell. Has had happened last year. Patient did have some SOB before taking benadryl. Patient took benadryl around noon and SOB subsided. Still has swelling on bilateral hands and lips. Patient has lump on throat. H/O DM, HTN documented in this encounter Miscellaneous Notes ED Nurse Note - Whit Elder RN - 03/06/2020 9:28 PM CSTPatient given prescription and discharge instructions with voiced understanding. Patient discharged ambulatory to home per private means. D Nurse Note - Whit Elder RN - 03/06/2020 9:10 PM CSTSlight reduction in swelling to hands and mouth. Patient reports that she can bend her fingers some and they don't hurt like they were. D Nurse Note - Whit Elder RN - 03/06/2020 7:35 PM CSTNicole Promise David is a 35 year old female co allergic reaction . States that thinks is to dye in the wrapping paper. Happened last year while wrapping Presents. Ambulatory alert and oriented. Noted with mild swelling to bilateral hands.and reports she touched her mouth and also slightly swollen. 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 Plan of Treatment Health Maintenance Due Date Last Done Comments VARICELLA VACCINES (1 of 2 - 1986 2-dose childhood series) Depression Screening 1997 DTaP,Tdap,and Td Vaccines (1 - 02/28/2004 01/16/2019 Tdap) PAP SMEAR 2006 INFLUENZA VACCINE (#1) 2019 PNEUMOCOCCAL 0-64 YEARS COMBINED Aged Out No longer eligible based on SERIES patient's age to complete this topic documented as of this encounter Procedures Procedure Name Priority Date/Time Associated Diagnosis Comme nts POCT TEST JUAN AMNUEL 03/06/2020 8:04 PM Allergic react ion, Results for this TRAILER ASSEMBLER initial encounter procedure are in the results section. NOTICE OF PRIVACY Routine 03/06/2020 7:08 PM PRACTICES TRAILER ASSEMBLER CONSENT/REFUSAL FOR Routine 03/06/2020 7:08 PM DIAGNOSIS AND TRAILER ASSEMBLER TREATMENT documented in this encounter Results POCT TEST (03/06/2020 8:04 PM TRAILER ASSEMBLER) Pathologist Sig nature POCT PREG negative On board controls acceptable present with C Line POCT PREG LOT # [id number] POCT PREG TEST DATE 2021-07-13 Specimen Urine - URINE, CLEAN CATCH documented in this encounter Visit Diagnoses Diagnosis Allergic reaction, initial encounter - P rimary documented in this encounter Administered Medications Medication Order MAR Action Action Date Dose Rate Site diphenhydrAMINE (BENADRYL) tablet Given 03/06/2020 8:06 PM TRAILER ASSEMBLER 25 mg 25 mg 25 mg, Oral, ONCE, 1 dose, 03/06/20 at 2100, JUAN MANUEL famotidine (PEPCID AC) tablet 20 mg Given 03/06/2020 8:06 PM TRAILER ASSEMBLER 20 mg 20 mg, Oral, ONCE, 1 dose, 03/06/20 at 2100, JUAN MANUEL predniSONE (DELTASONE) tablet 40 mg Given 03/06/2020 8:07 PM TRAILER ASSEMBLER 40 mg 40 mg, Oral, ONCE, 1 dose, 03/06/20 at 2100, JUAN MANUEL documented in this encounter Insurance Payer Benefit Plan Subscriber ID Effective Dates Phone Address Type / Group [facility] [id number] [phone] [address] PPO/POS [place] - OUT OF t 7 [id number] [place] [address] documented as of this encounter
--- OUTSIDE RECORDS SUMMARY | 2020-03-10 10:01 | XMS REPORT | Summary of Care ---
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 documented as of this encounter Last Filed Vital Signs Not on filedocumented in this encounter Miscellaneous Notes Telephone Encounter - Mary Kay Cuevas RN - 03/08/2020 5:38 PM CSTAdult Triage Assessment Last Clinic Visit: non-established, [facility] ER 03/06/2020, dx allergic reaction - per patient to decorative boxes and wrapping paper Primary Symptom: upper eyelids "have started puffing up", "like got stung by a bee", red/swollen/puffy bump behind right ear, and now forming behind left ear Onset / Duration: today 1630 Location / Description: face/head, both upper eyelids and both ears Pain / Severity: 0/10 Associated Symptoms: denies difficulty breathing/wheezing, no lip swelling/palm swelling, is home alone at this time Fever / Method: denies forehead feeling hot, but "internally my body feels hot", no thermometer Hydration: drinking fluids as usual self today, urinating as usual today Treatment so far: prednisone 40mg last at this morning around 1315-3122, pepcid 20mg last around 3606-3541, benadryl 50mg last 6415-1921, shower, sprayed wrapping paper/boxes (exposures) with alcohol Effect on ADL's: significant change LMP: about 2 weeks ago Pre-existing condition / Immunocompromised: per patient: HTN, "insulin deficient" - "not diabetic", "extremely obese" Access Center Reason for Disposition [1] Widespread hives, itching or facial swelling AND [2] onset < 2 hours of exposure to high-risk allergen (e.g., sting, nuts, 1st dose of antibiotic) Reports upper eyelids "have started puffing up", "like got stung by a bee", red/swollen/puffy bump behind right ear, and now forming behind left ear Protocols used: [id number] Assessment and triage done, disposition to see ED now. Callback/EMS 911 warnings given. Pt is home alone at this time, advised her not to take Benadryl before driving. Pt voiced understanding and agreement with plan of care, states she will go to [facility] ER now. elephone Encounter - Mary Kay Cuevas RN - 03/08/2020 5:38 PM CSTRegarding: was in ER for allergic reaction 2 days ago, now is having swelling above eyes/behind ears ----- Message from Jillian Virgen sent at 03/08/2020 5:20 PM REGISTERED RADIOLOGIC TECHNOLOGIST ----- Norah Virgen Maximino David is a 35 year old female documented in this encounter Plan of Treatment [...] Results Not on filedocumented in this encounter Insurance Payer Benefit Plan Subscriber ID Effective Dates Phone Address Type / Group [facility] [id number] 2019-Jason [phone] [address] PPO/[place] - OUT OF t 7 [id number] [place] [address] documented as of this encounter
--- OUTSIDE RECORDS SUMMARY | 2020-03-10 10:01 | XMS REPORT | Continuity of Care Document ---
:1985 Author Organization [facility] t Address [address] [place] [address] Care Team Providers Name Role Phone Polina Hutson Attending Clinician Mason RN Attending Clinician Unavailable Lalito Hitchcock Attending Clinician Problems This patient has no known problems. Allergies, Adverse Reactions, Alerts This patient has no known allergies or adverse reactions. Medications This patient has no known medications. Procedures This patient has no known procedures. Encounters Start End Encounter Admission Attending Care Care Encounter Source Date/Time Date/Time Type Type Clinicians Facility Department ID 2020-03-08 2020-03-08 Emergency Matt, K [facility] [id number] 19:29:00 19:54:00 Polina Whiteside [id number] [place] [id number] [place] [id number] 2020-03-08 2020-03-08 Nurse Mary Kay Cuevas [id number] 00:00:00 00:00:00 Triage [facility] [id number] [facility] [id number] 2020-03-06 2020-03-06 Emergency Frandy Harvey [facility] [id number] 19:30:00 21:29:00 Lalito Whiteside [id number] [place] [id number] [place] [id number] Results This patient has no known results.
[2020-03-10 11:07] LABS: Absolute Lymphocytes (CBC) 1.7 K/uL (0.7-4.9); Basophils % 0.3 % (0-1.3); Hematocrit 42.2 % (36.0-45.0); Lymphocytes % 10.6 % (15.3-44.8); MPV 8.7 fL (7.6-11.3); RBC Red Blood Cell Count 4.64 M/uL (3.86-4.86)
[2020-03-10] MEDS ORDERED: METHYLPREDNISOLONE 125 MG INJ ONE (11:13)
[2020-03-10] MEDS ORDERED: DIPHENHYDRAMINE 50 MG/ML VIAL ONE (11:13)
[2020-03-10] MEDS ORDERED: FAMOTIDINE 20 MG/2 ML VIAL IV ONE (11:14)
[2020-03-10] MEDS ORDERED: dexAMETHasone 10 MG/ML VIAL ONE (11:14)
[2020-03-10] MEDS ORDERED: NA CHLORIDE 0.9% 1,000 ML ONE (11:14)
[2020-03-10 11:31] LABS: Albumin 3.2 g/dL (3.4-5.0); Bilirubin Total 0.2 mg/dL (0.2-1.0); Potassium 3.9 mmol/L (3.5-5.1)
[2020-03-10 11:43] LABS: Blood Morphology Comment NOT SEEN (NOT SEEN); Platelet Estimate ADEQ; White Blood Cell Scan OK (OK)
--- NOTE | 2020-03-10 11:46 | RAD REPORT ---
EXAM DESCRIPTION: CT - Soft Tissue Neck W/Contr CLINICAL HISTORY: SWELLING, ALLERGIC Pain and swelling COMPARISON: No comparisons TECHNIQUE All CT scans are performed using dose optimization technique as appropriate and may includ e automated exposure control or mA/KV adjustment according to patient size. FINDINGS: Nasopharyngeal tissues are normal in appearance. Fossa Rosenmller are normal. Parapharyngeal fat triangles are symmetric. Tongue base structures are normal. [place] tonsils are m ildly prominent bilaterally. Epiglottis and aryepiglottic folds are normal. Piriform sinuses are well aerated. Mildly prominent lymph nodes are seen throughout the neck. These are likely reactive. The vocal cords are normal in appearance. Normal size thyroid gland. Salivary glands are normal in appearance. Upper lung quijano are clear. Included intracranial contents are unremarkable. IMPRESSION: No acute abnormality is detected.
--- NOTE | 2020-03-10 12:11 | ER ---
Nurse's Notes [facility] Name: Norah David Age: 35 yrs Sex: Female : 1985 Arrival Date: 03/10/2020 Time: 10:00 Bed 15 Private MD: Diagnosis: Angioneurotic edema;Urticaria Presentation: 03/10 10:06 Chief complaint: Patient states: "I went to [facility] a few days ago after I had an allergic aa5 reaction to some decorative boxes and they gave me steroids and 2 days ago I went because my face was still swollen but they said it was normal and to keep taking my steroids but today I started feeling short of breath about an hour ago and my throat feels tight". Swelling noted to periorbital area. Coronavirus screen: Client denies travel out of the [place] in the last 14 days. At this time, the client does not indicate any symptoms associated with coronavirus-19. Ebola Screen: Patient negative for fever greater than or equal to 101.5 degrees Fahrenheit, and additional compatible Ebola Virus Disease symptoms. Initial Sepsis Screen: Does the patient meet any 2 criteria? No. Patient's initial sepsis screen is negative. Does the patient have a suspected source of infection? No. Patient's initial sepsis screen is negative. Risk Assessment: Do you want to hurt yourself or someone else? Patient reports no desire to harm self or others. Onset of symptoms was February 2020. 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 - Social history:: Smoking status: Patient denies any tobacco usage or history of. - Family history:: not pertinent. Screenin:10 Abuse screen: Denies threats or abuse. Denies injuries from another. Nutritional ca1 screening: No deficits noted. Tuberculosis screening: No symptoms or risk factors identified. Fall Risk IV access (20 points). Assessment: 10:10 General: Appears in no apparent distress. comfortable, Behavior is calm, cooperative, ca1 appropriate for age. Pain: Denies pain. Neuro: Level of Consciousness is awake, alert, obeys commands, Oriented to person, place, time, situation. Cardiovascular: Heart tones S1 S2 present Capillary refill < 3 seconds Patient's skin is warm and dry. Rhythm is regular. Respiratory: Reports shortness of breath at rest since this morning Airway is patent Respiratory effort is even, unlabored, Respiratory pattern is regular, symmetrical, Breath sounds are clear bilaterally. GI: Abdomen is round obese, Bowel sounds present X 4 quads. Abd is soft and non tender X 4 quads. : No signs and/or symptoms were reported regarding the genitourinary system. EENT: Throat is clear. Derm: Skin is intact, is healthy with good turgor, Skin is pink, warm \\T\\ dry. Rash noted that is urticaria, on face, right ear, left ear, right eye and left eye noted on face. Musculoskeletal: Circulation, motion, and sensation intact. Capillary refill < 3 seconds. 11:00 Reassessment: Patient appears in no apparent distress at this time. Patient and/or ca1 family updated on plan of care and expected duration. Pain level reassessed. Patient is alert, oriented x 3, equal unlabored respirations, skin warm/dry/pink. 12:00 Reassessment: Patient appears in no apparent distress at this time. Patient and/or ca1 family updated on plan of care and expected duration. Pain level reassessed. Patient is alert, oriented x 3, equal unlabored respirations, skin warm/dry/pink. Patient states feeling better. Patient states symptoms have improved. 12:50 Reassessment: Patient appears in no apparent distress at this time. Patient is alert, ca1 oriented x 3, equal unlabored respirations, skin warm/dry/pink. Vital Signs: 10:06 BP 115 / 71; Pulse 112; Resp 28 S; Temp 99.0(TE); Pulse Ox 100% on R/A; aa5 11:00 BP 100 / 66; Pulse 89; Resp 24 S; Pulse Ox 96% on R/A; ca1 12:00 BP 92 / 61; Pulse 83; Resp 20 S; Pulse Ox 99% on R/A; ca1 12:50 BP 100 / 69; Pulse 86; Resp 18 S; Pulse Ox 99% on R/A; ca1 ED Course: 10:00 Patient arrived in ED. ag5 10:06 Eran Cole MD is Attending Physician. catherine 10:06 Arm band placed on Patient placed in an exam room, on a stretcher. aa5 10:09 Triage completed. aa5 10:10 Patient has correct armband on for positive identification. Bed in low position. Call ca1 light in reach. Side rails up X2. Pulse ox on. NIBP on. Warm blanket given. Head of bed elevated. 10:38 Vi Murrell, RN is Primary Nurse. ca1 10:55 Inserted saline lock: 20 gauge in right antecubital area, using aseptic technique. ca1 Blood collected. 10:55 No provider procedures requiring assistance completed. ca1 11:31 Soft Tissue Neck W/Contr CT In Process Unspecified. EDMS 12:50 IV discontinued, intact, bleeding controlled, No redness/swelling at site. Pressure ca1 dressing applied. Administered Medications: 10:56 Drug: NS 0.9% 1000 ml Route: IV; Rate: 1 bolus; Site: right antecubital; ca1 12:00 Follow up: Response: No adverse reaction; IV Status: Completed infusion; IV Intake: ca1 1000ml 21:23 Follow up: Response: No adverse reaction; IV Status: Completed infusion; IV Intake: ca1 1000ml 10:57 Drug: Pepcid 40 mg Route: IVP; Site: right antecubital; ca1 12:00 Follow up: Response: No adverse reaction ca1 10:58 Drug: SOLU-Medrol 125 mg Route: IVP; Site: right antecubital; ca1 12:00 Follow up: Response: No adverse reaction; Marked relief of symptoms ca1 11:00 Drug: Benadryl 50 mg Route: IVP; Site: right antecubital; ca1 12:00 Follow up: Response: No adverse reaction ca1 11:02 Drug: Decadron - Dexamethasone 10 mg Route: IVP; Site: right antecubital; ca1 12:00 Follow up: Response: No adverse reaction; Marked relief of symptoms ca1 Intake: 12:00 IV: 1000ml; Total: 1000ml. ca1 Outcome: 12:10 Discharge ordered by . catherine 12:50 Discharged to home ambulatory, with significant other. ca1 12:50 Condition: stable 12:50 Discharge instructions given to patient, Instructed on discharge instructions, follow up and referral plans. medication usage, Demonstrated understanding of instructions, follow-up care, medications, Prescriptions given X 4. 12:51 Patient left the ED. ca1 Signatures: Dispatcher [employer] Eran Jones MD MD cha Calderon, Audri, RN RN aa5 Vi Murrell RN RN ca1 Elaine Ya ag5 Corrections: (The following items were deleted from the chart) 12:27 12:00 Reassessment: Patient appears in no apparent distress at this time. Patient ca1 and/or family updated on plan of care and expected duration. Pain level reassessed. Patient is alert, oriented x 3, equal unlabored respirations, skin warm/dry/pink. ca1
--- NOTE | 2020-03-10 12:11 | EDPHYS ---
Physician Documentation [facility] Name: Norah David Age: 35 yrs Sex: Female : 1985 Arrival Date: 03/10/2020 Time: 10:00 Bed 15 Private MD: ED Physician Eran Cole HPI: 03/10 10:32 This 35 yrs old Female presents to ER via Wheelchair with complaints of catherine Breathing Difficulty, Facial Swelling. 10:32 The patient has shortness of breath at rest, with light activity. Onset: The catherine symptoms/episode began/occurred 3 day(s) ago. Duration: The symptoms are continuous, and are steadily getting worse. The patient's shortness of breath is aggravated by nothing, is alleviated by nothing. Severity of symptoms: At their worst the symptoms were moderate in the emergency department the symptoms are unchanged. The patient has not experienced similar symptoms in the past. 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 - Social history:: Smoking status: Patient denies any tobacco usage or history of. - Family history:: not pertinent. ROS: 10:32 Constitutional: Negative for fever, chills, and weight loss, Eyes: Negative for injury, catherine pain, redness, and discharge, Neck: Negative for injury, pain, and swelling, Cardiovascular: Negative for chest pain, palpitations, and edema, Respiratory: Negative for shortness of breath, cough, wheezing, and pleuritic chest pain, Abdomen/GI: Negative for abdominal pain, nausea, vomiting, diarrhea, and constipation, Back: Negative for injury and pain, : Negative for injury, bleeding, discharge, and swelling, MS/Extremity: Negative for injury and deformity, Skin: Negative for injury, rash, and discoloration, Neuro: Negative for headache, weakness, numbness, tingling, and seizure, Psych: Negative for depression, anxiety, suicide ideation, homicidal ideation, and hallucinations, Allergy/Immunology: Negative for hives, rash, and allergies, Endocrine: Negative for neck swelling, polydipsia, polyuria, polyphagia, and marked weight changes, Hematologic/Lymphatic: Negative for swollen nodes, abnormal bleeding, and unusual bruising. 10:32 ENT: Positive for difficulty handling secretions, difficulty swallowing, sinus congestion. Exam: 10:32 Constitutional: This is a well developed, well nourished patient who is awake, alert, catherine and in no acute distress. Head/Face: Normocephalic, atraumatic. Eyes: Pupils equal round and reactive to light, extra-ocular motions intact. Lids and lashes normal. Conjunctiva and sclera are non-icteric and not injected. Cornea within normal limits. Periorbital areas with no swelling, redness, or edema. Neck: Trachea midline, no thyromegaly or masses palpated, and no cervical lymphadenopathy. Supple, full range of motion without nuchal rigidity, or vertebral point tenderness. No Meningismus. Chest/axilla: Normal chest wall appearance and motion. Nontender with no deformity. No lesions are appreciated. Cardiovascular: Regular rate and rhythm with a normal S1 and S2. No gallops, murmurs, or rubs. Normal PMI, no JVD. No pulse deficits. Respiratory: Lungs have equal breath sounds bilaterally, clear to auscultation and percussion. No rales, rhonchi or wheezes noted. No increased work of breathing, no retractions or nasal flaring. Abdomen/GI: Soft, non-tender, with normal bowel sounds. No distension or tympany. No guarding or rebound. No evidence of tenderness throughout. Back: No spinal tenderness. No costovertebral tenderness. Full range of motion. MS/ Extremity: Pulses equal, no cyanosis. Neurovascular intact. Full, normal range of motion. Neuro: Awake and alert, GCS 15, oriented to person, place, time, and situation. Cranial nerves II-XII grossly intact. Motor strength 5/5 in all extremities. Sensory grossly intact. Cerebellar exam normal. Normal gait. Psych: Awake, alert, with orientation to person, place and time. Behavior, mood, and affect are within normal limits. 10:32 ENT: Posterior pharynx: no acute changes, Airway: normal, no evidence of obstruction, Tonsils: are normal in appearance, Uvula: normal, midline, non-edematous, no erythema, swelling, is not appreciated, erythema, is not appreciated, exudate, is not appreciated. 10:32 Skin: Appearance: Color: normal in color, Temperature: normal temperature, Moisture: normal moisture, petechiae, not noted, ecchymosis, not noted, flushing, not noted, HIVES, URTICARIA, diaphoresis is not appreciated. Vital Signs: 10:06 BP 115 / 71; Pulse 112; Resp 28 S; Temp 99.0(TE); Pulse Ox 100% on R/A; aa5 11:00 BP 100 / 66; Pulse 89; Resp 24 S; Pulse Ox 96% on R/A; ca1 12:00 BP 92 / 61; Pulse 83; Resp 20 S; Pulse Ox 99% on R/A; ca1 12:50 BP 100 / 69; Pulse 86; Resp 18 S; Pulse Ox 99% on R/A; ca1 MDM: 10:06 Patient medically screened. catherine 10:32 Differential diagnosis: Anxiety Reaction reactive airway disease. Antibiotic catherine administration: Not indicated. The patient's Wells Deep Vein Thrombosis Score was calculated as follows: Total Score: 0-2 Pts- Low Risk. The patient's pulmonary embolism risk score was calculated as follows: Total Score: 0-2 points. This patient was found to be at low risk for a pulmonary embolism by using the Well's assessment criteria. Immunization status:. Data reviewed: vital signs, nurses notes, radiologic studies, CT scan. Data interpreted: radiation monitor: rate is 112 beats/min, rhythm is regular, Pulse oximetry: on room air is 100 %. Test interpretation: by ED physician or midlevel provider:. Counseling: I had a detailed discussion with the patient and/or guardian regarding: the historical points, exam findings, and any diagnostic results supporting the discharge/admit diagnosis, lab results, radiology results, the need for outpatient follow up, for definitive care, a family practitioner. 03/10 10:32 Order name: CBC with Diff; Complete Time: 12:10 [facility] 03/10 10:32 Order name: Comprehensive Metabolic Panel; Complete Time: 11:34 [facility] 03/10 10:32 Order name: Soft Tissue Neck W/Contr CT; Complete Time: 12:10 [facility] 03/10 11:18 Order name: CREATININE WHOLE BLOOD; Complete Time: 11:34 [facility] 03/10 11:43 Order name: CBC Smear Scan; Complete Time: 12:10 [facility] 03/10 12:42 Order name: Urine Dipstick--Ancillary (enter results) em1 03/10 10:32 Order name: Urine Dipstick-Ancillary (obtain specimen); Complete Time: 12:40 [facility] 03/10 10:32 Order name: Urine Test (obtain specimen); Complete Time: 12:40 [facility] Administered Medications: 10:56 Drug: NS 0.9% 1000 ml Route: IV; Rate: 1 bolus; Site: right antecubital; ca1 12:00 Follow up: Response: No adverse reaction; IV Status: Completed infusion; IV Intake: ca1 1000ml 21:23 Follow up: Response: No adverse reaction; IV Status: Completed infusion; IV Intake: ca1 1000ml 10:57 Drug: Pepcid 40 mg Route: IVP; Site: right antecubital; ca1 12:00 Follow up: Response: No adverse reaction ca1 10:58 Drug: SOLU-Medrol 125 mg Route: IVP; Site: right antecubital; ca1 12:00 Follow up: Response: No adverse reaction; Marked relief of symptoms ca1 11:00 Drug: Benadryl 50 mg Route: IVP; Site: right antecubital; ca1 12:00 Follow up: Response: No adverse reaction ca1 11:02 Drug: Decadron - Dexamethasone 10 mg Route: IVP; Site: right antecubital; ca1 12:00 Follow up: Response: No adverse reaction; Marked relief of symptoms ca1 Disposition: 03/10/20 12:10 Discharged to Home. Impression: Angioneurotic edema, Urticaria. - Condition is Stable. - Discharge Instructions: Hives, Angioedema, Angioedema, [id number], Hives, [id number]. - Prescriptions for Benadryl 25 mg Oral Capsule - take 2 capsule by ORAL route every 6 hours As needed; 36 tablet. Pepcid 20 mg Oral Tablet - take 1 tablet by ORAL route every 12 hours for 10 days; 20 tablet. Prednisone 20 mg Oral Tablet - take 2 tablet by ORAL route once daily for 5 days; 10 tablet. EpiPen 0.3 mg Injection auto- injector - inject 1 pen by INTRAMUSCULAR route one time Inject into the outer portion of the thigh, through clothing if necessary. Indicated in the emergency treatment of allergic reactions; 1 Container. - Medication Reconciliation Form, Thank You Letter, Antibiotic Education, Prescription Opioid Use form. - Follow up: Private Physician; When: 2 - 3 days; Reason: Recheck today's complaints, Continuance of care, Re-evaluation by your physician. - Problem is new. - Symptoms have improved. Signatures: Dispatcher [employer] EDMS Eran Cole MD MD cha Calderon, Audri, RN RN aa5 Vi Murrell RN RN ca1 Corrections: (The following items were deleted from the chart) 12:51 12:10 03/10/2020 12:10 Discharged to Home. Impression: Angioneurotic edema; Urticaria. ca1 Condition is Stable. Discharge Instructions: Hives, Angioedema, Angioedema, [id number]-[id number]-Kfgd, Hives, [id number]-[id number]. Prescriptions for Benadryl 25 mg Oral Capsule - take 2 capsule by ORAL route every 6 hours As needed; 36 tablet, Pepcid 20 mg Oral Tablet - take 1 tablet by ORAL route every 12 hours for 10 days; 20 tablet, Prednisone 20 mg Oral Tablet - take 2 tablet by ORAL route once daily for 5 days; 10 tablet, EpiPen 0.3 mg Injection auto-injector - inject 1 pen by INTRAMUSCULAR route one time Inject into the outer portion of the thigh, through clothing if necessary. Indicated in the emergency treatment of allergic reactions; 1 Container. and Forms are Medication Reconciliation Form, Thank You Letter, Antibiotic Education, Prescription Opioid Use. Follow up: Private Physician; When: 2 - 3 days; Reason: Recheck today's complaints, Continuance of care, Re-evaluation by your physician. Problem is new. Symptoms have improved. catherine
[2020-03-10 12:46] LABS: Urine Blood NEGATIVE (NEG); Urine Glucose 2+ (NEG); Urine Protein NEGATIVE (NEG); Urine Specific Gravity 1.015 (1.005-1.030)
[2020-03-10 12:55] VITALS: TEMP 99
[2020-03-10 12:58] VITALS: O2SAT 99
[2020-03-10 12:59] VITALS: BP 100/69
== END 2020-03-10 12:51 | disposition home or self-care (01) ==
LOC: ER 09:59
DX: T78.3XXA Angioneurotic edema, initial encounter (principal); L50.9 Urticaria, unspecified
CPT/HCPCS: 96361; 85025; 36415; 82565; 81003; 80053; 70491; 96375; 96374; 99284; Q9967; J1200; J1100; J7030; J2930

== ENCOUNTER 2020-03-12 14:40 | Emergency (ER) | payer BC ==
--- OUTSIDE RECORDS SUMMARY | 2020-03-12 14:42 | XMS REPORT | Continuity of Care Document ---
:1985 Author Organization [facility] t Address [address] [place] [address] Care Team Providers Name Role Phone Polina [...] Department ID 2020-03-08 2020-03-08 Emergency Matt, K [facility] [id number] 19:29:00 19:54:00 Polina Whiteside [id number] [place] [id number] [place] [id number] [id number] 2020-03-08 2020-03-08 Nurse Mary Kay Cuevas [id number] 00:00:00 00:00:00 Triage WILBERTO [id number] [facility] [id number] 2020-03-06 2020-03-06 Emergency Frandy Harvey [facility] [id number] 19:30:00 21:29:00 Lalito Whiteside [id number] [place] [id number] [place] [phone] [id number] Results This patient has no known results.
[2020-03-12 16:00] LABS: Absolute Lymphocytes (CBC) 4.8 K/uL (0.7-4.9); Basophils % 0.6 % (0-1.3); Hematocrit 44.9 % (36.0-45.0); Lymphocytes % 23.2 % (15.3-44.8); MPV 8.9 fL (7.6-11.3); RBC Red Blood Cell Count 4.96 M/uL (3.86-4.86)
[2020-03-12] MEDS ORDERED: METHYLPREDNISOLONE 125 MG INJ ONE (16:04)
[2020-03-12] MEDS ORDERED: DIPHENHYDRAMINE 50 MG/ML VIAL ONE (16:04)
[2020-03-12] MEDS ORDERED: ONDANSETRON 4 MG/2 ML VIAL ONE ×3 (16:05→17:53)
[2020-03-12] MEDS ORDERED: FAMOTIDINE 20 MG/2 ML VIAL IV ONE (16:05)
[2020-03-12] MEDS ORDERED: NA CHLORIDE 0.9% 1,000 ML ONE ×3 (16:05→17:53)
[2020-03-12 16:16] LABS: Albumin 3.2 g/dL (3.4-5.0); Bilirubin Direct 0.1 mg/dL (0-0.2); Bilirubin Total 0.4 mg/dL (0.2-1.0); Potassium 3.6 mmol/L (3.5-5.1); Protein, Total 6.7 g/dL (6.4-8.2)
--- NOTE | 2020-03-12 16:55 | RAD REPORT ---
EXAM DESCRIPTION: CT - Abdomen Pelvis W Contrast - 03/12/2020 4:40 pm CLINICAL HISTORY: N/V, abdominal pain COMPARISON: No comparisons TECHNIQUE: Biphasic, helical CT imaging of the abdomen and pelvis was performed following 100 ml non -ionic IV contrast. No oral contrast administered. All CT scans are performed using dose optimization technique as appropriate and may include automated exposure control or mA/KV adjustment according to patient size. FINDINGS: No suspicious findings in the lung bases. The liver, spleen, and pancreas show no focal findings. Mild diffuse fatty infiltration pattern seen in the liver. No portal vein abnormality seen. Cholecystectomy clips are present with no biliary tree dilatation. Symmetric renal function is seen with no hydronephrosis or suspicious renal mass. No pyelonephritis o r acute parenchymal process. No bladder abnormalities. No adrenal abnormalities. Uterus and ovaries s how no suspicious findings. No dilated bowel loops or bowel wall thickening. Appendix is normal. No free air, free fluid or infla mmatory stranding. No hernia, mass or bulky lymphadenopathy. No suspicious bony findings. IMPRESSION: Contrast enhanced CT abdomen and pelvis showing no acute or emergent finding.
--- NOTE | 2020-03-12 18:56 | EDPHYS ---
Physician Documentation [facility] Name: Norah David Age: 35 yrs Sex: Female : 1985 Arrival Date: 03/12/2020 Time: 14:43 Bed 15 Private MD: ED Physician Fazal Quintana HPI: 03/12 15:45 This 35 yrs old Female presents to ER via Ambulatory with complaints of Hives.cp 15:45 The patient's rash thought to be caused by an unknown cause. The rash is located on the cp body diffusely. Onset: The symptoms/episode began/occurred 11 day(s) ago. Associated signs and symptoms: Pertinent positives: itching, nausea, vomiting, times 2 days, Pertinent negatives: difficulty breathing, fever, swelling of lips, swelling of throat, swelling of tongue. Patient reports she was prescribed oral prednisone and pepcid but has been unable to take medications due to vomiting for past 2 days. 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 - Social history:: Smoking status: Patient reports the use of cigarette tobacco products, smokes one-half pack cigarettes per day. ROS: 15:55 Skin: Positive for rash, diffusely. cp 15:55 Eyes: Negative for injury, pain, redness, and discharge. cp 15:55 Constitutional: Negative for body aches, chills, fever. 15:55 Cardiovascular: Negative for chest pain, palpitations. 15:55 Respiratory: Negative for cough, shortness of breath, wheezing. 15:55 Abdomen/GI: Positive for nausea and vomiting, Negative for diarrhea, constipation. 15:55 Neuro: Negative for altered mental status, headache, weakness. 15:55 All other systems are negative. Exam: 16:00 Constitutional: The patient appears in no acute distress, alert, awake, cp non-diaphoretic, non-toxic, well developed, well nourished, obese, uncomfortable. 16:00 Head/Face: Normocephalic, atraumatic. cp 16:00 Eyes: Periorbital structures: appear normal, Conjunctiva: normal, no exudate, no injection, Sclera: no appreciated abnormality, Lids and lashes: appear normal, bilaterally. 16:00 ENT: External ear(s): are unremarkable, Nose: is normal, Mouth: Lips: moist, Oral mucosa: moist, Posterior pharynx: Airway: no evidence of obstruction, patent. 16:00 Neck: ROM/movement: is normal, is supple, without pain, no range of motions limitations. 16:00 Chest/axilla: Palpation: is normal, no crepitus, no tenderness. 16:00 Cardiovascular: Rate: tachycardic, Rhythm: regular, Edema: is not appreciated. 16:00 Respiratory: the patient does not display signs of respiratory distress, Respirations: normal, no use of accessory muscles, no retractions, labored breathing, is not present, accessory muscle usage, is absent, Breath sounds: are clear throughout, no decreased breath sounds, no stridor, no wheezing. 16:00 Abdomen/GI: Inspection: obese Palpation: abdomen is soft and non-tender, in all quadrants. 16:00 Skin: rash a moderate rash is noted, consistent with urticaria, Hives, and is diffusely located. 16:00 Neuro: Orientation: to person, place \T\ time. Mentation: is normal. Vital Signs: 14:53 BP 140 / 114; Pulse 135; Resp 18; Temp 97.3; Pulse Ox 100% on R/A; Weight 176.9 kg; ll1 Height 5 ft. 7 in. (170.18 cm); Pain 10/10; 15:34 BP 116 / 72; Pulse 131; Resp 17; Pulse Ox 98% ; jl7 16:03 BP 107 / 70; Pulse 122; Resp 22; Pulse Ox 98% ; jl7 17:08 BP 105 / 74; Pulse 106; Resp 17; Pulse Ox 96% ; jl7 14:53 Body Mass Index 61.08 (176.90 kg, 170.18 cm) ll1 MDM: 15:35 Patient medically screened. cp 16:00 Differential diagnosis: allergic reaction, anaphylaxis gastritis, pancreatitis, cp gastroenteritis. 18:00 Data reviewed: vital signs, nurses notes, lab test result(s), radiologic studies, and cp as a result, I will discharge patient. 18:00 Counseling: I had a detailed discussion with the patient and/or guardian regarding: the cp historical points, exam findings, and any diagnostic results supporting the discharge/admit diagnosis, lab results, radiology results. Response to treatment: the patient's symptoms have markedly improved after treatment. ED course: VSS. Nausea and rash markedly improved. Vomiting resolved. Will discharge to home for continued monitoring. 03/12 15:42 Order name: Basic Metabolic Panel; Complete Time: 16:17 cp 03/12 16:17 Interpretation: Normal except: CL 108; GLUC 117; BUN 23; GFR 55. cp 03/12 15:42 Order name: CBC with Diff cp 03/12 16:07 Interpretation: Normal except: WBC 20.6; RBC 4.96; HGB 15.3; PLT 379; NEUT A 14.1. cp 03/12 15:42 Order name: Hepatic Function; Complete Time: 16:17 cp 03/12 15:42 Order name: Lipase; Complete Time: 16:17 cp 03/12 16:18 Order name: CT Abd/Pelvis - IV Contrast Only; Complete Time: 16:57 cp 03/12 16:57 Interpretation: Report reviewed. cp 03/12 15:42 Order name: IV Saline Lock; Complete Time: 15:50 cp 03/12 15:42 Order name: Labs collected and sent; Complete Time: 15:50 cp 03/12 17:35 Order name: PO challenge; Complete Time: 18:14 cp Administered Medications: 15:50 Drug: NS 0.9% 1000 ml Route: IV; Rate: 1 bolus; Site: right antecubital; jl7 17:30 Follow up: Response: No adverse reaction; IV Status: Completed infusion; IV Intake: jl7 1000ml 15:50 Drug: Zofran (Ondansetron) 4 mg Route: IVP; Site: right antecubital; jl7 16:05 Follow up: Response: No adverse reaction; Nausea is decreased jl7 15:52 Drug: Benadryl 50 mg Route: IVP; Site: right antecubital; jl7 17:11 Follow up: Response: No adverse reaction jl7 15:55 Drug: SOLU-Medrol 125 mg Route: IVP; Site: right antecubital; jl7 17:11 Follow up: Response: No adverse reaction jl7 15:59 Drug: Pepcid 20 mg Route: IVP; Site: right antecubital; jl7 17:11 Follow up: Response: No adverse reaction jl7 17:10 Drug: NS 0.9% 1000 ml Route: IV; Rate: 1 bolus; Site: right antecubital; jl7 18:30 Follow up: Response: No adverse reaction; IV Status: Completed infusion; IV Intake: jl7 1000ml 17:10 Drug: Zofran (Ondansetron) 4 mg Route: IVP; Site: right antecubital; jl7 17:45 Follow up: Response: No adverse reaction; Nausea is decreased jl7 Disposition: 03/13 07:06 Co-signature as Attending Physician, Fazal Quintana MD. rn Disposition: 03/12/20 18:01 Discharged to Home. Impression: Urticaria, unspecified, Nausea and vomiting. - Condition is Stable. - Discharge Instructions: Hives, Nausea and Vomiting, Adult. - Prescriptions for prednisone 10 mg Oral tablet - take 2 tablet by ORAL route once daily for 2 days then 1 tablet daily for 2 days, then 1/2 tablet daily for 2 days, then off; 7 tablet. Prednisone 20 mg Oral Tablet - take 1 tablet by ORAL route once daily for 2 days; 2 tablet. Zofran 4 mg Oral Tablet - take 1 tablet by ORAL route every 12 hours As needed; 20 tablet. - Medication Reconciliation Form, Thank You Letter, Antibiotic Education, Prescription Opioid Use form. - Follow up: Private Physician; When: 2 - 3 days; Reason: Recheck today's complaints. - Problem is new. - Symptoms have improved. Signatures: Dispatcher [employer] EDMS Fazal Quintana MD MD rn Page, Corey, PA PA cp Yuliya Wills RN RN jl7 Dinah Hua RN RN ll1 Corrections: (The following items were deleted from the chart) 03/12 16:00 15:42 Urine Dipstick-Ancillary ordered. cp [email or web address] 16:00 15:42 Urine Test ordered. cp [email or web address] 18:45 18:01 03/12/2020 18:01 Discharged to Home. Impression: Urticaria, unspecified; Nausea jl7 and vomiting. Condition is Stable. Forms are Medication Reconciliation Form, Thank You Letter, Antibiotic Education, Prescription Opioid Use. Follow up: Private Physician; When: 2 - 3 days; Reason: Recheck today's complaints. Problem is new. Symptoms have improved. cp
--- NOTE | 2020-03-12 18:56 | ER ---
Nurse's Notes [facility] Name: Norah David Age: 35 yrs Sex: Female : 1985 Arrival Date: 03/12/2020 Time: 14:43 Bed 15 Private MD: Diagnosis: Urticaria, unspecified;Nausea and vomiting Presentation: 03/12 14:53 Chief complaint: Patient states: Hives for 11 days. Itching all over. Unable to hold ll1 down foods/fluids for 2 days, N/V/D. Feels hot at home. Coronavirus screen: cough unrelated to allergies, At this time, the client does not indicate any symptoms associated with coronavirus-19. Ebola Screen: Patient denies travel to an Ebola-affected area in the 21 days before illness onset. Onset: The symptoms/episode began/occurred 12 day(s) ago. Anaphylaxis evaluation, no signs or symptoms of anaphylaxis were noted. Initial Sepsis Screen: Does the patient meet any 2 criteria? HR > 90 bpm. No. Patient's initial sepsis screen is negative. Does the patient have a suspected source of infection? Yes: Skin breakdown/wound. Risk Assessment: Do you want to hurt yourself or someone else? Patient reports no desire to harm self or others. Onset of symptoms was February 29, 2020. 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 - Social history:: Smoking status: Patient reports the use of cigarette tobacco products, smokes one-half pack cigarettes per day. Screenin:30 Abuse screen: Denies threats or abuse. Denies injuries from another. Nutritional jl7 screening: No deficits noted. Tuberculosis screening: No symptoms or risk factors identified. Fall Risk IV access (20 points). Total Mims Fall Scale indicates No Risk (0-24 pts). Assessment: 15:30 General: Appears in no apparent distress. uncomfortable, Behavior is cooperative. Pain: jl7 Complains of pain in all over Pain currently is 10 out of 10 on a pain scale. Neuro: Level of Consciousness is awake, alert, obeys commands, Oriented to person, place, time, situation. Cardiovascular: Patient's skin is warm and dry. Respiratory: Airway is patent Respiratory effort is even, unlabored, Respiratory pattern is regular, symmetrical, Breath sounds are clear. GI: Reports nausea. Derm: Rash noted that is urticaria. 15:37 Reassessment: ERP at bedside assessing pt. 7 15:45 Reassessment: Pt refused providing urine sample, refused UPT, states "I'm not . jl7 I was just tested and it was negative.". 17:00 Reassessment: ERP at bedside discussing results and POC. jl7 18:30 Reassessment: Patient appears in no apparent distress at this time. Patient and/or jl7 family updated on plan of care and expected duration. Pain level reassessed. Patient is alert, oriented x 3, equal unlabored respirations, skin warm/dry/pink. Patient states feeling better. Patient states symptoms have improved. Vital Signs: 14:53 BP 140 / 114; Pulse 135; Resp 18; Temp 97.3; Pulse Ox 100% on R/A; Weight 176.9 kg; ll1 Height 5 ft. 7 in. (170.18 cm); Pain 10/10; 15:34 BP 116 / 72; Pulse 131; Resp 17; Pulse Ox 98% ; jl7 16:03 BP 107 / 70; Pulse 122; Resp 22; Pulse Ox 98% ; jl7 17:08 BP 105 / 74; Pulse 106; Resp 17; Pulse Ox 96% ; jl7 14:53 Body Mass Index 61.08 (176.90 kg, 170.18 cm) ll1 ED Course: 14:43 Patient arrived in ED. rg4 14:56 Triage completed. ll1 14:56 Arm band placed on. ll1 15:27 Eran Anderson PA is PHCP. cp 15:27 Fazal Quintana MD is Attending Physician. cp 15:27 Yuliya Wills RN is Primary Nurse. jl7 15:30 Patient has correct armband on for positive identification. Bed in low position. Call [facility] light in reach. Side rails up X 1. Pulse ox on. NIBP on. 15:35 Inserted saline lock: 20 gauge in right antecubital area, using aseptic technique. jl7 16:00 Initial lab(s) drawn, by me, sent to lab. jl7 16:40 CT Abd/Pelvis - IV Contrast Only In Process Unspecified. EDMS 18:44 No provider procedures requiring assistance completed. IV discontinued, intact, jl7 bleeding controlled, No redness/swelling at site. Pressure dressing applied. Administered Medications: 15:50 Drug: NS 0.9% 1000 ml Route: IV; Rate: 1 bolus; Site: right antecubital; jl7 17:30 Follow up: Response: No adverse reaction; IV Status: Completed infusion; IV Intake: jl7 1000ml 15:50 Drug: Zofran (Ondansetron) 4 mg Route: IVP; Site: right antecubital; jl7 16:05 Follow up: Response: No adverse reaction; Nausea is decreased jl7 15:52 Drug: Benadryl 50 mg Route: IVP; Site: right antecubital; jl7 17:11 Follow up: Response: No adverse reaction jl7 15:55 Drug: SOLU-Medrol 125 mg Route: IVP; Site: right antecubital; jl7 17:11 Follow up: Response: No adverse reaction jl7 15:59 Drug: Pepcid 20 mg Route: IVP; Site: right antecubital; jl7 17:11 Follow up: Response: No adverse reaction jl7 17:10 Drug: NS 0.9% 1000 ml Route: IV; Rate: 1 bolus; Site: right antecubital; jl7 18:30 Follow up: Response: No adverse reaction; IV Status: Completed infusion; IV Intake: jl7 1000ml 17:10 Drug: Zofran (Ondansetron) 4 mg Route: IVP; Site: right antecubital; jl7 17:45 Follow up: Response: No adverse reaction; Nausea is decreased jl7 Intake: 17:30 IV: 1000ml; Total: 1000ml. jl7 18:30 IV: 1000ml; Total: 2000ml. jl7 Outcome: 18:01 Discharge ordered by . cp 18:44 Discharged to home ambulatory. jl7 18:44 Condition: stable 18:44 Discharge instructions given to patient, Instructed on discharge instructions, follow up and referral plans. medication usage, Demonstrated understanding of instructions, follow-up care, medications, Prescriptions given X 3. 18:45 Patient left the ED. jl7 Signatures: Dispatcher [employer] EDMS Eran Anderson PA PA cp Garcia, Rubi rg4 Yuliya Wills RN RN jl7 Dinah Hua RN RN ll1 Corrections: (The following items were deleted from the chart) 17:10 17:09 Reassessment: ERP at bedside discussing results and POC juan antonio romano
[2020-03-12] MEDS ORDERED: DIPHENOX/ATROP SULF 1 TAB PO ONE ×2 (19:28→19:37)
[2020-03-12 19:48] VITALS: TEMP 97.3
[2020-03-12 19:51] VITALS: BP 105/74; O2SAT 96
[2020-03-12 21:03] LABS: Blood Morphology Comment NOT SEEN (NOT SEEN); Platelet Estimate ADEQ
== END 2020-03-12 18:45 | disposition home or self-care (01) ==
LOC: ER 14:40
DX: L50.9 Urticaria, unspecified (principal); R11.2 Nausea with vomiting, unspecified; I10 Essential (primary) hypertension; F17.210 Nicotine dependence, cigarettes, uncomplicated
CPT/HCPCS: 96361; 85025; 80048; 36415; 80076; 83690; 74177; 96375; 96374; 99284; Q9967; J1200; J7030 ×3; J2930; J2405 ×3

== ENCOUNTER 2023-07-05 17:57 | Emergency (ER) | payer BC ==
--- OUTSIDE RECORDS SUMMARY | 2023-07-05 18:00 | XMS REPORT | Continuity of Care Document ---
Author Name Unknown Address [address] [facility] [address] [facility] [address] [place] [address] [facility] thconnect Address [address] 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 Role Phone ERIK SEE Attending Clinician Unavailable Ramakrishna Hutson Attending Clinician Ramakrishna DENNY Attending Clinician Unavailable Mary Kay Cuevas RN Attending Clinician Unavailable Frandy Hitchcock Attending Clinician [phone] Payers Payer Name Policy Type Policy Number Effective Date Expirati on Date Source BCBS 2 [id number] 2022 00:00:00 Problems Condition Name Condition Details Condition Category Status Onset Date Resolution Date Last Treatment Date Treating Clinician Comments Source No known active problems No known active problems Disease [facility] Allergies, Adverse Reactions, Alerts Allergy Name Allergy Type Status Severity Reaction(s) Onset Date Inactive Date Treating Clinician Comments Source NO KNOWN ALLERGIE S Drug Class Active [facility] Social History Social Habit Start Date Stop Date Quantity Comments Source Sex Assigned At [facility] Exposure to SARS-CoV-2 (event) Not sure [facility] Smoking Status Start Date Stop Date Source Unknown if ever smoked [facility] Medications Ordered Medication Name Filled Medication Name Start Date Stop Date Current Medication? Ordering Clinician Indication Dosage Frequency Signature (SIG) Comments Components Source famotidine (PEPCID AC) tablet 20 mg 2019-03 03:00: 00 03-07 02:06 :00 No 20mg 20 mg, Oral, ONCE, 1 dose, Thu03/06/20 at 2100, [facility] predniSONE (DELTASONE) tablet 40 mg 2019-03 03:00: 00 03-07 02:07 :00 No 40mg 40 mg, Oral, ONCE, 1 dose, Thu03/06/20 at 2100, [facility] diphenhydrA MINE (BENADRYL) tablet 25 mg 2019-03 03:00: 00 03-07 02:06 :00 No 25mg 25 mg, Oral, ONCE, 1 dose, Thu03/06/20 at 2100, [facility] predniSONE 20 mg tablet 2019-03 00:00: 00 Yes [id number] Take 2 tablets by mouth once daily for 4 days [facility] famotidine (PEPCID) 20 mg tablet 2019-03 00:00: 00 Yes [id number] 20mg Take 1 tablet by mouth 2 (two) times daily. [facility] diphenhydrA MINE (BENADRYL) 25 mg capsule 2019-03 00:00: 00 03-14 05:59 :00 No [id number] 25mg Take 1 capsule by mouth every 6 (six) hours as needed for Allergies for up to 7 days. [facility] Vital Signs Vital Name Observation Time Observation Value Comments S azam Systolic blood pressure 2020-03-09 01:27:00 156 mm[Hg] [facility] Diastolic blood pressure 2020-03-09 01:27:00 103 mm[Hg] [facility] Heart rate 2020-03-09 01:27:00 85 /min [facility] Body temperature 2020-03-09 01:27:00 37.11 Isabell [facility] Respiratory rate 2020-03-09 01:27:00 18 /min [facility] Body height 2020-03-09 01:27:00 170.2 cm [facility] Body weight 2020-03-09 01:27:00 176.903 kg [facility] BMI 2020-03-09 01:27:00 61.08 kg/m2 [facility] Oxygen saturation in Arterial blood by Pulse oximetry 2020-03-09 01:27:00 98 /min [facility] Systolic blood pressure 2020-03-09 01:27:00 156 mm[Hg] [facility] Diastolic blood pressure 2020-03-09 01:27:00 103 mm[Hg] [facility] Heart rate 2020-03-09 01:27:00 85 /min [facility] Body temperature 2020-03-09 01:27:00 37.11 Isabell [facility] Respiratory rate 2020-03-09 01:27:00 18 /min [facility] Body height 2020-03-09 01:27:00 170.2 cm [facility] Body weight 2020-03-09 01:27:00 176.903 kg [facility] BMI 2020-03-09 01:27:00 61.08 kg/m2 [facility] Oxygen saturation in Arterial blood by Pulse oximetry 2020-03-09 01:27:00 98 /min [facility] Systolic blood pressure 2020-03-07 03:25:00 129 mm[Hg] [facility] Diastolic blood pressure 2020-03-07 03:25:00 77 mm[Hg] [facility] Heart rate 2020-03-07 03:25:00 94 /min [facility] Respiratory rate 2020-03-07 03:25:00 18 /min [facility] Oxygen saturation in Arterial blood by Pulse oximetry 2020-03-07 03:25:00 97 /min [facility] Body temperature 2020-03-07 01:25:52 37.61 Isabell [facility] Body height 2020-03-07 01:22:00 167.6 cm [facility] Body weight 2020-03-07 01:22:00 176.903 kg [facility] BMI 2020-03-07 01:22:00 62.95 kg/m2 [facility] Systolic blood pressure 2020-03-07 03:25:00 129 mm[Hg] [facility] Diastolic blood pressure 2020-03-07 03:25:00 77 mm[Hg] [facility] Heart rate 2020-03-07 03:25:00 94 /min [facility] Respiratory rate 2020-03-07 03:25:00 18 /min [facility] Oxygen saturation in Arterial blood by Pulse oximetry 2020-03-07 03:25:00 97 /min [facility] Body temperature 2020-03-07 01:25:52 37.61 Isabell [facility] Body height 2020-03-07 01:22:00 167.6 cm [facility] Body weight 2020-03-07 01:22:00 176.903 kg [facility] BMI 2020-03-07 01:22:00 62.95 kg/m2 [facility] Procedures Procedure Date / Time Performed Performing Clinicia n Source POCT TEST 2020-03-07 02:04:00 Frandy Harvey [facility] NOTICE OF PRIVACY PRACTICES 2020-03-07 01:08:48 Doctor Unassigned, [place] [facility] CONSENT/REFUSAL FOR DIAGNOSIS AND TREATMENT 2020-03-07 01:08:21 Doctor Unassigned, [place] [facility] Encounters Start Date/Time End Date/Time Encounter Type Admission Type Attending [facility] Care Department Encounter ID Source 2022-01-24 15:00:00 2022-01-24 15:00:00 Outpatient ERIK SEE [id number] Shelley Royal 2020-03-08 19:29:00 2020-03-08 19:54:00 Emergency Matt, K [facility] [id number] 2020-03-08 19:29:00 2020-03-08 19:54:00 Emergency Ramakrishna Denny [facility] [id number] [facility] 2020-03-08 19:29:00 2020-03-08 19:29:00 Emergency X Ramakrishna DENNY [facility] ERT [id number] [facility] 2020-03-08 00:00:00 2020-03-08 00:00:00 Nurse Triage [facility] [id number] [facility] 2020-03-08 00:00:00 2020-03-08 00:00:00 Nurse Triage [facility] [id number] 2020-03-06 19:30:00 2020-03-06 21:29:00 Emergency Frandy Harvey [facility] [id number] [facility] 2020-03-06 19:30:00 2020-03-06 21:29:00 Emergency Frandy Harvey [facility] [id number] 2020-03-06 19:09:00 2020-03-06 19:09:00 Emergency X [facility] ERT [id number] [facility] Results Test Description Test Time Test Comments Results Result Co mments Source [facility]
[2023-07-05] MEDS ORDERED: dexAMETHasone 10 MG/ML VIAL ONE (18:36)
[2023-07-05] MEDS ORDERED: KETOROLAC 30 MG/ML INJ ONE (18:37)
[2023-07-05] MEDS ORDERED: NA CHLORIDE 0.9% 1,000 ML ONE (18:37)
[2023-07-05 18:52] LABS: Absolute Basophils 0.1 K/uL (0-0.5); Absolute Eosinophils 0.2 K/uL (0-0.5); Absolute Lymphocytes (CBC) 2.3 K/uL (0.7-4.9); Absolute Monocytes 0.6 K/uL (0.1-1.3); Basophils % 0.7 % (0-1.3); Hematocrit 38.3 % (36.0-45.0); Hemoglobin 13.1 g/dL (12.0-15.0); Lymphocytes % 28.5 % (15.3-44.8); MCH 31.2 pg (27.0-35.0); MCHC 34.3 g/dL (32.0-36.0); MCV 90.7 fL (80-100); Monocytes % 6.9 % (3.3-12.3); Neutrophils % 61.9 % (41.7-73.7); Nucleated Red Blood Cells % 0.2 % (0-0); Platelets 224 thou/uL (152-406); RBC Red Blood Cell Count 4.22 M/uL (3.86-4.86); Red Cell Distribution Width 14.1 % (12.1-15.2)
--- NOTE | 2023-07-05 19:35 | RAD REPORT ---
EXAM DESCRIPTION: CT - Soft Tissue Neck W/Contr CLINICAL HISTORY: PAIN COMPARISON: Soft Tissue Neck W/Contr dated 03/10/[address] scans are performed using dose optimization technique as appropriate and may includ e automated exposure control or mA/KV adjustment according to patient size. FINDINGS: Nasopharyngeal tissues are normal in appearance. Fossa Rosenmller are normal. Parapharyngeal fat triangles are symmetric. Tongue base structures are normal. Epiglottis and aryepiglottic folds are normal. Piriform sinuses are well aerated. The vocal cords are normal in appearance. Salivary glands are normal in appearance. Upper lung quijano are clear. Included intracranial contents are unremarkable. IMPRESSION: No acute soft tissue abnormality identified. No significant change compared with 020.
[2023-07-05] MEDS ORDERED: HYDROCODONE/APAP 10/325 TAB ONE (19:40)
--- NOTE | 2023-07-05 19:53 | EDPHYS ---
Physician Documentation [facility] Name: Norah David Age: 38 yrs Sex: Female : 1985 Arrival Date: 07/05/2023 Time: 17:57 Bed 12 Private MD: ED Physician Winston Kraus HPI: 07/05 00:15 This 38 yrs old Female presents to ER via Ambulatory with complaints of Back Pain, Neck kb pain. 00:16 Patient is a 38-year-old female who presents for right-sided neck pain that radiates kb down the right arm that started upon waking yesterday morning. Reports pain is worse with movement, cough, sneezing, swallowing. States she has to hold her head in a certain way when she swallows or if she has a sharp pain so she is concerned that it something is swollen in her neck. States she has had pinched nerves in the past and she is never had problems with swallowing like this. Denies fever, stiffness, headache. Historical: - Allergies: 07/04 18:07 No Known Drug Allergies; ll1 - PMHx: 18:07 Hypertension; insulin resisitance; ll1 - PSHx: 18:07 Cholecystectomy; ll1 - Immunization history:: Adult Immunizations up to date. - Infectious Disease History:: Denies. - Social history:: Smoking status: Patient reports the use of cigarette tobacco products, smokes one-half pack cigarettes per day. ROS: 07/05 00:14 Constitutional: As per HPI kb Exam: 00:14 Constitutional: This is a well developed, well nourished patient who is awake, alert, kb and in no acute distress. Head/Face: Normocephalic, atraumatic. ENT: Moist Mucous membranes Cardiovascular: Regular rate Respiratory: Respirations even and unlabored. No increased work of breathing. Talking in full sentences Abdomen/GI: Soft, non-tender. No distention Skin: Warm, dry with normal turgor. Normal color. MS/ Extremity: Pulses equal, no cyanosis. Neurovascular intact. Full, normal range of motion. Neuro: Awake and alert, GCS 15, oriented to person, place, time, and situation. Moves all extremities. Normal gait. 00:14 Neck: External neck: tenderness, that is moderate, of the right mid cervical area and right trapezius, 00:14 Back: pain, that is moderate, of the right trapezius, ROM is painful, Vital Signs: 07/04 18:06 BP 177 / 110; Pulse 90; Resp 18; Temp 98; Pulse Ox 100% ; Weight 174.63 kg; Height 5 ll1 ft. 7 in. ; Pain 7/10; 19:12 Pain 7/10; tm6 19:44 BP 141 / 99; Pulse 81; Pulse Ox 97% on R/A; MAP 111 mmHg; Pain 6/10; tm6 20:13 BP 139 / 97; Pulse 87; Resp 19; Temp 96.9(TE); Pulse Ox 97% on R/A; Pain 5/10; tm6 18:06 Body Mass Index 60.30 (174.63 kg, 170.18 cm) ll1 18:06 Pain Scale: Adult ll1 19:12 Pain Scale: Adult tm6 19:44 Pain Scale: Adult tm6 20:13 Pain Scale: Adult tm6 MDM: 18:06 Patient medically screened. kb 07/05 00:15 Differential diagnosis: Cervical Raiculopathy Cervical Spondylosis cervical strain, kb torticollis, neck abscess. Data reviewed: vital signs, nurses notes. Counseling: I had a detailed discussion with the patient and/or guardian regarding the historical points, exam findings, and any diagnostic results supporting the discharge/admit diagnosis, lab results, radiology results, the need for outpatient follow up, a family practitioner, to return to the emergency department if symptoms worsen or persist or if there are any questions or concerns that arise at home. ED course: At bedside to reassess patient. Patient remains awake, alert and at baseline mentation. Patient appears stable. Patient exhibits no visible signs of distress. Patient respirations even and unlabored. I discussed patient's diagnosis, differential diagnosis, expected course of illness, at home recommendations and strict return precautions. I advised patient to follow-up with PCP in 2 to 3 days. I explained all diagnostic results with the patient and answered all questions that patient had regarding the most likely diagnosis. I emphasized the need for close outpatient follow-up and care from primary care provider/specialist and went through careful and detailed return precautions with patient. Patient expressed full understanding of such and agrees with plan for discharge today. Feel patient is stable and appropriate for discharge and ongoing management of condition at home at this time.. 00:16 Response to treatment: the patient's symptoms have markedly improved after treatment. kb 07/04 18:14 Order name: BMP; Complete Time: 19:13 kb 07/04 18:14 Order name: CBC with Diff; Complete Time: 18:56 kb 07/04 18:14 Order name: CT Soft Tissue Neck W/contr; Complete Time: 19:36 kb 07/04 18:14 Order name: IV Start; Complete Time: 18:36 kb 07/04 19:37 Order name: Vital Signs; Complete Time: 19:44 kb Administered Medications: 07/04 18:43 Drug: Decadron - Dexamethasone IVP 10 mg IVP once Route: IVP; Infused Over: 2 mins; ld2 Site: right antecubital; 18:43 Drug: NS 0.9% IV 1000 ml IV at 1000 ml once Route: IV; Rate: 1000 ml; Site: right ld2 antecubital; Delivery: Primary tubing; 20:15 Follow up: IV Status: Completed infusion; IV Intake: 1000ml tm6 18:43 Drug: Ketorolac IVP 15 mg IVP once Route: IVP; Infused Over: 2 mins; Site: right ld2 antecubital; 19:44 Drug: Casmalia PO 10 mg-325 mg 1 tabs PO once Route: PO; tm6 Disposition Summary: 07/05/23 19:53 Discharge Ordered Notes: Location: Home kb Condition: Stable kb Diagnosis - Radiculopathy, cervical region kb Followup: kb - With: Emergency Department - When: As needed - Reason: Worsening of condition Followup: kb - With: Private Physician - When: 2 - 3 days - Reason: Recheck today's complaints, Continuance of care, Re-evaluation by your physician Discharge Instructions: - Discharge Summary Sheet kb - Cervical Radiculopathy, [id number] kb Forms: - Medication Reconciliation Form kb - Thank You Letter kb - Antibiotic Education kb - Prescription Opioid Use kb - Patient Portal Instructions kb - Leadership Thank You Letter kb - Work release form tm6 Prescriptions: - Prednisone 20 mg Oral Tablet - take 1 tablet ORAL route once daily for 5 days; 5 tablet; Refills: 0, Product kb Selection Permitted - Diclofenac Sodium 75 mg Oral tablet, delayed release (enteric coated) - take 1 tablet ORAL route 2 times per day As needed; 30 tablet; Refills: 0, kb Product Selection Permitted - orphenadrine citrate 100 mg Oral Tablet Sustained Release - take 1 tablet ORAL route 2 times per day As needed; 20 tablet; Refills: 0, kb Product Selection Permitted Addendum: 07/08/2023 09:13 Co-signature as Attending Physician, Winston Kraus MD I reviewed the patient's care r t provided by the Advanced Practice Provider and agree with the diagnosis and treatment plan. Signatures: Dispatcher [employer] EDMS Michell Godoy, WOOL FLEECE GRADER-C WOOL FLEECE GRADER-Dinah Aleman, RN RN ll1 Winston Kraus MD MD rt Ann Rosas RN RN tm6 Brigette Gamino, RN RN ld2 Corrections: (The following items were deleted from the chart) 07/04 18:15 18:15 BASIC METABOLIC PANEL+C.LAB.BRZ ordered. EDMS EDMS 18:15 18:15 CBC+H.LAB.BRZ ordered. EDMS EDMS 18:15 18:15 Soft Tissue Neck W/Contr+CT.RAD.BRZ ordered. EDMS EDMS
--- NOTE | 2023-07-05 19:53 | ER ---
Nurse's Notes [facility] Name: Norah David Age: 38 yrs Sex: Female : 1985 Arrival Date: 07/05/2023 Time: 17:57 Bed 12 Private MD: Diagnosis: Radiculopathy, cervical region Presentation: 07/04 18:06 Chief complaint: Patient states: Awoke yesterday with neck pain that radiates into R ll1 side of neck/shoulder. No trauma. Coronavirus screen: Client denies travel out of the [place] in the last 14 days. At this time, the client does not indicate any symptoms associated with coronavirus-19. Ebola Screen: Patient denies travel to an Ebola-affected area in the 21 days before illness onset. Initial Sepsis Screen: Does the patient meet any 2 criteria? No. Patient's initial sepsis screen is negative. Does the patient have a suspected source of infection? No. Patient's initial sepsis screen is negative. Risk Assessment: Do you want to hurt yourself or someone else? Patient reports no desire to harm self or others. Onset of symptoms was July 04, 2023. 18:06 Method Of Arrival: Ambulatory ll1 18:06 Acuity: JOS 4 ll1 18:16 Acuity: JOS 3 iw Triage Assessment: 18:07 General: Appears uncomfortable, Behavior is calm, cooperative, appropriate for age. ll1 Pain: Complains of pain in neck Pain currently is 6 out of 10 on a pain scale. Musculoskeletal: Reports pain in neck. Historical: - Allergies: 18:07 No Known Drug Allergies; ll1 - PMHx: 18:07 Hypertension; insulin resisitance; ll1 - PSHx: 18:07 Cholecystectomy; ll1 - Immunization history:: Adult Immunizations up to date. - Infectious Disease History:: Denies. - Social history:: Smoking status: Patient reports the use of cigarette tobacco products, smokes one-half pack cigarettes per day. Screenin:12 [facility] ED Fall Risk Assessment (Adult) History of falling in the last 3 months, ph including since admission No falls in past 3 months (0 pts) Confusion or Disorientation No (0 pts) Intoxicated or Sedated No (0 pts) Impaired Gait No (0 pts) Mobility Assist Device Used No (0 pt) Altered Elimination No (0 pt) Score/Fall Risk Level 0 - 2 = Low Risk Oriented to surroundings, Maintained a safe environment, Hourly rounding (assess needs \\T\\ fall precautionary measures) done. Abuse screen: Denies threats or abuse. Denies injuries from another. Nutritional screening: No deficits noted. Tuberculosis screening: No symptoms or risk factors identified. Assessment: 18:13 General: Appears in no apparent distress. Behavior is calm, cooperative. Pain: ph Complains of pain in right posterior aspect of neck and right lateral aspect of neck. Neuro: Level of Consciousness is awake, alert, obeys commands, Oriented to person, place, time, situation. 18:44 Cardiovascular: No deficits noted. Reports None. Respiratory: No deficits noted. Airway ld2 is patent Trachea midline Respiratory effort is even, unlabored, Respiratory pattern is regular, symmetrical. GI: No deficits noted. No signs and/or symptoms were reported involving the gastrointestinal system. : No deficits noted. No signs and/or symptoms were reported regarding the genitourinary system. Musculoskeletal: No deficits noted. Capillary refill < 3 seconds, in bilateral fingers. Range of motion: intact in all extremities, Pt states having pain to midline posterior neck, and states having pressure when swallowing due to "pinched nerve". Pt denies fall or injury to area. Aox4 and denies numbness, tingling present. 18:57 Reassessment: Report given to Ann MAC. ld2 19:12 Reassessment: Patient and/or family updated on plan of care and expected duration. Pain tm6 level reassessed. Patient is alert, oriented x 3, equal unlabored respirations, skin warm/dry/pink. Patient states symptoms have not improved. 19:44 Reassessment: No changes from previously documented assessment. tm6 20:13 Reassessment: Patient appears in no apparent distress at this time. Patient and/or tm6 family updated on plan of care and expected duration. Pain level reassessed. Patient is alert, oriented x 3, equal unlabored respirations, skin warm/dry/pink. Vital Signs: 18:06 BP 177 / 110; Pulse 90; Resp 18; Temp 98; Pulse Ox 100% ; Weight 174.63 kg; Height 5 ll1 ft. 7 in. ; Pain 7/10; 19:12 Pain 7/10; tm6 19:44 BP 141 / 99; Pulse 81; Pulse Ox 97% on R/A; MAP 111 mmHg; Pain 6/10; tm6 20:13 BP 139 / 97; Pulse 87; Resp 19; Temp 96.9(TE); Pulse Ox 97% on R/A; Pain 5/10; tm6 18:06 Body Mass Index 60.30 (174.63 kg, 170.18 cm) ll1 18:06 Pain Scale: Adult ll1 19:12 Pain Scale: Adult tm6 19:44 Pain Scale: Adult tm6 20:13 Pain Scale: Adult tm6 ED Course: 18:00 Patient arrived in ED. mr 18:06 Chandra Goodyistin, [facility] kb 18:06 Winston Kraus MD is Attending Physician. kb 18:07 Triage completed. ll1 18:07 Arm band placed on Patient placed in an exam room, on a stretcher. ll1 18:12 Sravani Rodriguez, RN is Primary Nurse. ph 18:12 Patient has correct armband on for positive identification. Bed in low position. Call ph light in reach. Door closed. Noise minimized. 18:36 CBC with Diff Sent. ld2 18:36 BMP Sent. ld2 18:44 Inserted saline lock: 20 gauge in right antecubital area, using aseptic technique. ld2 Blood collected. 18:45 No apparent distress. Resting quietly. ld2 19:26 CT Soft Tissue Neck W/contr In Process Unspecified. EDMS 20:14 Provided Education on: follow up with pcp. tm6 20:14 No provider procedures requiring assistance completed. IV discontinued, intact, tm6 bleeding controlled, No redness/swelling at site. Pressure dressing applied. Administered Medications: 18:43 Drug: Decadron - Dexamethasone IVP 10 mg IVP once Route: IVP; Infused Over: 2 mins; ld2 Site: right antecubital; 18:43 Drug: NS 0.9% IV 1000 ml IV at 1000 ml once Route: IV; Rate: 1000 ml; Site: right ld2 antecubital; Delivery: Primary tubing; 20:15 Follow up: IV Status: Completed infusion; IV Intake: 1000ml tm6 18:43 Drug: Ketorolac IVP 15 mg IVP once Route: IVP; Infused Over: 2 mins; Site: right ld2 antecubital; 19:44 Drug: [place] PO 10 mg-325 mg 1 tabs PO once Route: PO; tm6 Medication: 18:13 VIS not applicable for this client. ph Intake: 20:15 IV: 1000ml; Total: 1000ml. tm6 Outcome: 19:53 Discharge ordered by . esthela 20:14 Discharged to home ambulatory, with family, tm6 20:14 Condition: stable 20:14 Discharge instructions given to patient, family, Instructed on discharge instructions, follow up and referral plans. medication usage, Demonstrated understanding of instructions, follow-up care, medications, Prescriptions given X 3, 20:14 Patient left the ED. tm6 Signatures: Dispatcher [employer] EDMS Michell Godoy, PANEL MACHINE SETTER-C PANEL MACHINE SETTER-Ckb Brittany Beebe, Reg Reg mr Norma Shah, RN BUBBA iw Sravani Rodriguez RN RN ph Lewis, Lynsay, RN RN ll1 Ann Rosas RN RN tm6 Brigette Gamino RN RN ld2
[2023-07-05 20:36] VITALS: BP 139/97; TEMP 96.9; O2SAT 97
== END 2023-07-05 20:14 | disposition home or self-care (01) ==
LOC: ER 17:57
DX: M54.12 Radiculopathy, cervical region (principal); I10 Essential (primary) hypertension; F17.210 Nicotine dependence, cigarettes, uncomplicated
CPT/HCPCS: 96361; 85025; 80048; 36415; 70491; 96375; 96374; 99284; Q9967; J1100; J7030

== ENCOUNTER 2024-03-21 22:27 | Emergency (ER) | payer BC ==
--- OUTSIDE RECORDS SUMMARY | 2024-03-21 22:30 | XMS REPORT | Continuity of Care Document ---
Author Name Unknown Address [address] [place] [address] [facility] thconnect Address [address] [facility] [address] [facility] [place] [address] Care Team Providers Care Dental Lab Technician Name Role Phone Pcp, Patient Does Not Have A Primary Care Physic seferino Campaigns, Generic Provider Attending Clinician Unavailable AG JOHNSTON Attending Clinician UnavailAg Mae Attending Clinician [phone] ERIK SEE Attending Clinician Unavailable Ramakrishna Hutson Attending Clinician [phone] Ramakrishna DENNY Attending Clinician Unavailable Mary Kay Cuevas RN Attending Clinician Unavailable Frandy Hitchcock Attending Clinician [phone] AG JOHNSTON Admitting Clinician Unavaildebbie smith Payers Payer Name Policy Type Policy Number Effective Date Expirati on Date Source [facility] [id number] 2019 00:00:00 2020 00:00:00 BC[employer] 2 [id number] 2022 00:00:00 Problems Condition Name Condition Details Condition Category Status Onset Date Resolution Date Last Treatment Date Treating Clinician Comments Source No known active problems No known active problems Disease General acute hospital Allergies, Adverse Reactions, Alerts Allergy Name Allergy Type Status Severity Reaction(s) Onset Date Inactive Date Treating Clinician Comments Source NO KNOWN ALLERGIE S Drug Class Active General acute hospital Social History Social Habit Start Date Stop Date Quantity Comments Source Exposure to SARS-CoV-2 (event) Not sure [facility] Sexual orientation [facility] Sex assigned at 1985 00:00:00 1985 00:00:00 [facility] Smoking Status Start Date Stop Date Source Tobacco smoking consumption unknown [facility] Medications Ordered Medication Name Filled Medication Name Start Date Stop Date Current Medication? Ordering Clinician Indication Dosage Frequency Signature (SIG) Comments Components Source ibuprofen (IBU) tablet 600 mg 11-03 22:30: 00 11-03 22:31 :00 No 600mg 600 mg, Oral, ONCE, 1 dose, On Thu11/04/23 at 1730, [facility] acetaminoph en (TYLENOL) tablet 1,000 mg 11-03 22:30: 00 11-03 22:31 :00 No 1000mg 1,000 mg, Oral, ONCE, 1 dose, On Thu11/04/23 at 1730, [facility] naproxen 500 mg tablet 11-03 00:00: 00 Yes [id number] 500mg Take 1 tablet by mouth in the morning and 1 tablet in the evening. Take with meals. General acute hospital famotidine (PEPCID AC) tablet 20 mg 2019-03 03:00: 00 03-07 02:06 :00 No 20mg 20 mg, Oral, ONCE, 1 dose, Thu03/06/20 at 2100, [facility] predniSONE (DELTASONE) tablet 40 mg 2019-03 03:00: 00 03-07 02:07 :00 No 40mg 40 mg, Oral, ONCE, 1 dose, Thu03/06/20 at 2100, [facility] diphenhydrA MINE (BENADRYL) tablet 25 mg 2019-03 03:00: 00 03-07 02:06 :00 No 25mg 25 mg, Oral, ONCE, 1 dose, Thu03/06/20 at 2100, [facility] predniSONE 20 mg tablet 2019-03 00:00: 00 Yes [id number] Take 2 tablets by mouth once daily for 4 days General acute hospital famotidine (PEPCID) 20 mg tablet 2019-03 00:00: 00 Yes [id number] 20mg Take 1 tablet by mouth 2 (two) times daily. General acute hospital diphenhydrA MINE (BENADRYL) 25 mg capsule 2019-03 00:00: 00 03-14 05:59 :00 No [id number] 25mg Take 1 capsule by mouth every 6 (six) hours as needed for Allergies for up to 7 days. General acute hospital Immunizations Ordered Immunization Name Filled Immunization Name Date Status Comments Source Td 2019-01-16 00:00:00 Completed [facility] Td 2019-01-16 00:00:00 Completed [facility] Td 2019-01-16 00:00:00 Completed [facility] TD, NOS Unknown Completed [facility] TD, NOS Unknown Completed [facility] Vital Signs Vital Name Observation Time Observation Value Comments S ource Systolic blood pressure 2023-11-04 22:37:18 142 mm[Hg] [facility] Diastolic blood pressure 2023-11-04 22:37:18 77 mm[Hg] [facility] Heart rate 2023-11-04 22:37:18 82 /min [facility] Body temperature 2023-11-04 22:37:18 37 Isabell [facility] Respiratory rate 2023-11-04 22:37:18 18 /min [facility] Oxygen saturation in Arterial blood by Pulse oximetry 2023-11-04 22:37:18 96 /min [facility] Body height 2023-11-04 20:52:00 172.7 cm [facility] Body weight 2023-11-04 20:52:00 181.439 kg [facility] BMI 2023-11-04 20:52:00 60.82 kg/m2 [facility] Systolic blood pressure 2020-03-09 01:27:00 156 mm[Hg] [facility] Diastolic blood pressure 2020-03-09 01:27:00 103 mm[Hg] [facility] Heart rate 2020-03-09 01:27:00 85 /min Unive [facility] Body temperature 2020-03-09 01:27:00 37.11 [facility] Respiratory rate 2020-03-09 01:27:00 18 /min [facility] Body height 2020-03-09 01:27:00 170.2 cm [facility] Body weight 2020-03-09 01:27:00 176.903 kg [facility] BMI 2020-03-09 01:27:00 61.08 kg/m2 [facility] Oxygen saturation in Arterial blood by Pulse oximetry 2020-03-09 01:27:00 98 /min [facility] Systolic blood pressure 2020-03-09 01:27:00 156 mm[Hg] [facility] Diastolic blood pressure 2020-03-09 01:27:00 103 mm[Hg] [facility] Heart rate 2020-03-09 01:27:00 85 /min Unive [facility] Body temperature 2020-03-09 01:27:00 37.11 [facility] Respiratory rate 2020-03-09 01:27:00 18 /min [facility] Body height 2020-03-09 01:27:00 170.2 cm [facility] Body weight 2020-03-09 01:27:00 176.903 kg [facility] BMI 2020-03-09 01:27:00 61.08 kg/m2 [facility] Oxygen saturation in Arterial blood by Pulse oximetry 2020-03-09 01:27:00 98 /min [facility] Systolic blood pressure 2020-03-07 03:25:00 129 mm[Hg] [facility] Diastolic blood pressure 2020-03-07 03:25:00 77 mm[Hg] [facility] Heart rate 2020-03-07 03:25:00 94 /min Unive [facility] Respiratory rate 2020-03-07 03:25:00 18 /min [facility] Oxygen saturation in Arterial blood by Pulse oximetry 2020-03-07 03:25:00 97 /min [facility] Body temperature 2020-03-07 01:25:52 37.61 Isabell [facility] Body height 2020-03-07 01:22:00 167.6 cm [facility] Body weight 2020-03-07 01:22:00 176.903 kg [facility] BMI 2020-03-07 01:22:00 62.95 kg/m2 [facility] Systolic blood pressure 2020-03-07 03:25:00 129 mm[Hg] [facility] Diastolic blood pressure 2020-03-07 03:25:00 77 mm[Hg] [facility] Heart rate 2020-03-07 03:25:00 94 /min [facility] Respiratory rate 2020-03-07 03:25:00 18 /min [facility] Oxygen saturation in Arterial blood by Pulse oximetry 2020-03-07 03:25:00 97 /min [facility] Body temperature 2020-03-07 01:25:52 37.61 Isabell [facility] Body height 2020-03-07 01:22:00 167.6 cm [facility] Body weight 2020-03-07 01:22:00 176.903 kg [facility] BMI 2020-03-07 01:22:00 62.95 kg/m2 [facility] Procedures Procedure Date / Time Performed Performing Clinicia n Source POCT TEST 2020-03-07 02:04:00 Frandy Harvey [facility] NOTICE OF PRIVACY PRACTICES 2020-03-07 01:08:48 Doctor Unassigned, [place] [facility] CONSENT/REFUSAL FOR DIAGNOSIS AND TREATMENT 2020-03-07 01:08:21 Doctor Unassigned, [place] [facility] Encounters Start Date/Time End Date/Time Encounter Type Admission Type Attending Clinicians Care Facility Care Department Encounter ID Source 2023-11-11 00:00:00 2023-11-11 10:53:00 Letter (Out) Campaigns, Generic Provider Campaigns, Generic Provider [facility] [id number] General acute hospital 2023-11-04 15:56:00 2023-11-04 17:40:00 Emergency X AG JOHNSTON [facility] ERT [id number] General acute hospital 2023-11-04 15:56:00 2023-11-04 17:40:00 [facility] [id number] General acute hospital 2022-01-24 15:00:00 2022-01-24 15:00:00 Outpatient ERIK SEE [id number] Shelley Royal 2020-03-08 19:29:00 2020-03-08 19:54:00 Emergency Ramakrishna Denny [facility] [id number] 2020-03-08 19:29:00 2020-03-08 19:54:00 Emergency Ramakrishna Denny [facility] [id number] General acute hospital 2020-03-08 19:29:00 2020-03-08 19:29:00 Emergency X Ramakrishna DENNY [facility] ERT [id number] General acute hospital 2020-03-08 00:00:00 2020-03-08 00:00:00 Nurse Triage [facility] [id number] General acute hospital 2020-03-08 00:00:00 2020-03-08 00:00:00 Nurse Triage [facility] [id number] 2020-03-06 19:30:00 2020-03-06 21:29:00 Emergency Frandy Harvey [facility] [id number] General acute hospital 2020-03-06 19:30:00 2020-03-06 21:29:00 Emergency Frandy Harvey [facility] [id number] 2020-03-06 19:09:00 2020-03-06 19:09:00 Emergency X [facility] ERT [id number] General acute hospital Results Test Description Test Time Test Comments Results Result Co mments Source [facility]
[2024-03-21] MEDS ORDERED: dexAMETHasone 10 MG/ML VIAL ONE (23:12)
[2024-03-22 00:07] LABS: SARS-CoV-2 Antigen CONTROL BLUE LINE VIS/BG OK; SARS-CoV-2 Antigen Rapid Res Negative (Negative)
--- NOTE | 2024-03-22 00:26 | EDPHYS ---
Physician Documentation [facility] Name: Norah David Age: 39 yrs Sex: Female : 1985 Arrival Date: 03/21/2024 Time: 22:27 Bed 2 Private MD: ED Physician Winston Kraus HPI: 03/21 23:23 This 39 yrs old Female presents to ER via Unassigned with complaints of dr5 Shortness Of Breath, Cough. 23:23 The patient has shortness of breath at rest. Onset: The symptoms/episode began/occurred dr5 3 day(s) ago. Patient is a 39-year-old female with no past medical history coming in with shortness of breath/cough/congestion for the past 3 days. Patient reports taking cough medications with mild relief. Patient denies fever or sick contacts.. Historical: - Allergies: 23:23 No Known Allergies; jb4 - PMHx: 23:23 Hypertension; insulin resisitance; jb4 - PSHx: 23:23 Cholecystectomy; jb4 - Immunization history:: Adult Immunizations not up to date. - Infectious Disease History:: Denies. - Social history:: Smoking status: Patient reports the use of cigarette tobacco products, smokes one-half pack cigarettes per day. ROS: 23:23 Constitutional: as per hpi dr5 Exam: 23:23 Constitutional: This is a well developed, morbidly obese, well nourished patient who dr5 is awake, alert, and in no acute distress. Head/Face: Normocephalic, atraumatic. Eyes: Pupils equal round and reactive to light, extra-ocular motions intact. Lids and lashes normal. Conjunctiva and sclera are non-icteric and not injected. Cornea within normal limits. Periorbital areas with no swelling, redness, or edema. Neck: Trachea midline, no thyromegaly or masses palpated, and no cervical lymphadenopathy. Supple, full range of motion without nuchal rigidity, or vertebral point tenderness. No Meningismus. Chest/axilla: Normal chest wall appearance and motion. Nontender with no deformity. No lesions are appreciated. Cardiovascular: Regular rate and rhythm with a normal S1 and S2. Normal PMI, no JVD. No pulse deficits. Respiratory: Lungs have equal breath sounds bilaterally, clear to auscultation. No rales, rhonchi or wheezes noted. No increased work of breathing, no retractions or nasal flaring. Abdomen/GI: Soft, non-tender, non-distended Back: No spinal tenderness. No costovertebral tenderness. Full range of motion. Skin: Warm, dry with normal turgor. Normal color with no rashes, no lesions, and no evidence of cellulitis. Neuro: Awake and alert, GCS 15, oriented to person, place, time, and situation. Cranial nerves II-XII grossly intact. Motor strength 5/5 in all extremities. Sensory grossly intact. Cerebellar exam normal. Normal gait. Vital Signs: 22:45 BP 147 / 102; Pulse 85; Resp 24; Pulse Ox 96% on R/A; Weight 176.9 kg (R); Height 5 ft. jb4 7 in. (R); Pain 09/22; 03/22 00:06 BP 141 / 80; Pulse 87; Resp 16; Pulse Ox 96% on R/A; jb4 03/21 22:45 Body Mass Index 61.08 (176.90 kg, 170.18 cm) jb4 03/21 22:45 Pain Scale: Adult jb4 MDM: 03/21 22:32 Medical Screening Exam initiated dr5 03/22 01:30 Differential diagnosis: URI, PNA, Reactive Airway Disease. Antibiotic administration: dr5 Not indicated, the patient does not have an appreciated infiltrate. Data reviewed: vital signs, nurses notes, lab test result(s), Flu: negative radiologic studies, plain films. I considered the following discharge prescriptions or medication management in the emergency department Medications were administered in the Emergency Department. See MAR. Care significantly affected by the following chronic conditions: Diabetes, Hypertension. Care significantly affected by the following Social Determinants of Health: Poor access to healthcare and/or lack of insurance, Poor access to transportation, Problems related to employment. Counseling: I had a detailed discussion with the patient and/or guardian regarding the historical points, exam findings, and any diagnostic results supporting the discharge/admit diagnosis, the presence of at least one elevated blood pressure reading (>120/80) during this emergency department visit, lab results, radiology results, the need for outpatient follow up, for definitive care, a family practitioner, to return to the emergency department if symptoms worsen or persist or if there are any questions or concerns that arise at home. 03/21 23:00 Order name: SARS RAPID; Complete Time: 00:16 dr5 03/21 23:00 Order name: Influenza Screen (a \T\ B); Complete Time: 00:16 dr5 03/21 23:00 Order name: Chest Pa And Lat (2 Views) XRAY dr5 Administered Medications: 03/21 23:14 Drug: Dexamethasone IM 10 mg IM once Route: IM; Site: right deltoid; jj7 03/22 01:01 Follow up: Response: No adverse reaction; Marked relief of symptoms jb4 Disposition: 01:58 Co-signature as Attending Physician, Winston Kraus MD I reviewed the patient's care rt provided by the Advanced Practice Provider and agree with the diagnosis and treatment plan. Disposition Summary: 03/22/24 00:26 Discharge Ordered Notes: Location: Home dr5 Condition: Stable dr5 Diagnosis - Acute upper respiratory infection, unspecified dr5 Followup: dr5 - With: Emergency Department - When: As needed - Reason: Worsening of condition Followup: dr5 - With: Private Physician - When: 1 - 2 days - Reason: Recheck today's complaints, Continuance of care, Re-evaluation by your physician Discharge Instructions: - Discharge Summary Sheet dr5 - Upper Respiratory Infection, Adult dr5 Forms: - Work release form dr5 - Medication Reconciliation Form dr5 - Antibiotic Education dr5 - Patient Portal Instructions dr5 - Leadership Thank You Letter dr5 Prescriptions: - Bromfed DM 2-30-10 mg/5 mL Oral syrup - administer 10 milliliter ORAL route 4 times per day As needed as needed for dr5 sinus symptoms; 240 milliliter; Refills: 0, Product Selection Permitted - albuterol sulfate 90 mcg/actuation Inhalation HFA Aerosol Inhaler - inhale 1 inhalation INHALATION route every 3 hours As needed as needed for dr5 bronchospasm; administer via ventilator; 1 application; Refills: 0, Product Selection Permitted - Medrol (Simon) 4 mg Oral Tablets, Dose Pack - take 1 tablet ORAL route as directed - follow package instructions; 1 packet; dr5 Refills: 0, Product Selection Permitted Signatures: Dispatcher [employer] Serjio Pierre, RN RN jb4 Jordy Rodriguez RN RN jj7 Winston Kraus MD MD rt Riaz Peck, ETHICAL HACKER-C ETHICAL HACKER-Cdr5
--- NOTE | 2024-03-22 00:26 | ER ---
Nurse's Notes [facility] [place] Name: Norah David Age: 39 yrs Sex: Female : 1985 Arrival Date: 03/21/2024 Time: 22:27 Bed 2 Private MD: Diagnosis: Acute upper respiratory infection, unspecified Presentation: 03/21 22:45 Chief complaint: Patient states: I had the flu last Thursday. I have been having jb4 worsening SOB and coughing fits since. 22:45 Coronavirus screen: Client presents with at least one sign or symptom that may indicate jb4 coronavirus-19. Standard/surgical mask placed on the client. Ebola Screen: No symptoms or risks identified at this time. Initial Sepsis Screen: Does the patient meet any 2 criteria? Yes Does the patient have a suspected source of infection? No. Patient's initial sepsis screen is negative. Risk Assessment: Do you want to hurt yourself or someone else? Patient reports no desire to harm self or others. Onset of symptoms was March 21, 2024. Transition of care: patient was not received from another setting of care. 22:45 Method Of Arrival: Wheelchair jb4 22:45 Acuity: JOS 4 jb4 Historical: - Allergies: 23:23 No Known Allergies; jb4 - PMHx: 23:23 Hypertension; insulin resisitance; jb4 - PSHx: 23:23 Cholecystectomy; jb4 - Immunization history:: Adult Immunizations not up to date. - Infectious Disease History:: Denies. - Social history:: Smoking status: Patient reports the use of cigarette tobacco products, smokes one-half pack cigarettes per day. Screenin:45 [facility] ED Fall Risk Assessment (Adult) History of falling in the last 3 months, jb4 including since admission No falls in past 3 months (0 pts) Confusion or Disorientation No (0 pts) Intoxicated or Sedated No (0 pts) Impaired Gait No (0 pts) Mobility Assist Device Used No (0 pt) Altered Elimination No (0 pt) Score/Fall Risk Level 0 - 2 = Low Risk Oriented to surroundings, Maintained a safe environment. Abuse screen: Denies threats or abuse. Nutritional screening: No deficits noted. Tuberculosis screening: No symptoms or risk factors identified. Assessment: 22:45 General: Appears in no apparent distress. uncomfortable, Behavior is calm, cooperative, jb4 appropriate for age. Pain: Complains of pain in headache Pain does not radiate. Pain currently is 7 out of 10 on a pain scale. Neuro: Level of Consciousness is awake, alert, obeys commands, Oriented to person, place, time, situation. Cardiovascular: Patient's skin is warm and dry. Respiratory: Airway is patent Respiratory effort is even, unlabored, Respiratory pattern is regular, symmetrical. GI: No signs and/or symptoms were reported involving the gastrointestinal system. : No signs and/or symptoms were reported regarding the genitourinary system. EENT: No signs and/or symptoms were reported regarding the EENT system. Derm: Skin is intact, Skin is pink, warm \T\ dry. Musculoskeletal: Circulation, motion, and sensation intact. Range of motion: intact in all extremities. 03/22 00:06 Reassessment: Patient appears in no apparent distress at this time. Patient and/or jb4 family updated on plan of care and expected duration. Pain level reassessed. Patient is alert, oriented x 3, equal unlabored respirations, skin warm/dry/pink. Patient states feeling better. 01:01 Reassessment: Patient appears in no apparent distress at this time. Patient and/or jb4 family updated on plan of care and expected duration. Pain level reassessed. Patient is alert, oriented x 3, equal unlabored respirations, skin warm/dry/pink. Vital Signs: 03/21 22:45 BP 147 / 102; Pulse 85; Resp 24; Pulse Ox 96% on R/A; Weight 176.9 kg (R); Height 5 ft. jb4 7 in. (R); Pain 7/10; 03/22 00:06 BP 141 / 80; Pulse 87; Resp 16; Pulse Ox 96% on R/A; jb4 03/21 22:45 Body Mass Index 61.08 (176.90 kg, 170.18 cm) jb4 03/21 22:45 Pain Scale: Adult jb4 ED Course: 03/21 22:28 Patient arrived in ED. mr 22:32 Riaz Peck [facility]-C [facility]. [facility] 22:32 Winston Kraus MD is Attending Physician. dr5 22:45 Patient has correct armband on for positive identification. Bed in low position. Call jb4 light in reach. Side rails up X 1. Provided Education on: plan of care. 22:45 No provider procedures requiring assistance completed. Patient did not have IV access jb4 during this emergency room visit. 23:22 Serjio Kiran, RN is Primary Nurse. jb4 23:23 Triage completed. jb4 23:23 Arm band placed on right wrist. jb4 23:40 Chest Pa And Lat (2 Views) XRAY In Process Unspecified. EDMS Administered Medications: 23:14 Drug: Dexamethasone IM 10 mg IM once Route: IM; Site: right deltoid; jj7 03/22 01:01 Follow up: Response: No adverse reaction; Marked relief of symptoms jb4 Medication: 03/21 22:45 VIS not applicable for this client. jb4 Outcome: 03/22 00:26 Discharge ordered by . dr5 01:01 Discharged to home via wheelchair, with family, jb4 01:01 Condition: stable 01:01 Discharge instructions given to patient, Instructed on discharge instructions, follow up and referral plans. medication usage, Demonstrated understanding of instructions, follow-up care, medications, Prescriptions given X 3, 01:01 Patient left the ED. jb4 Signatures: Dispatcher [employer] EDCO AbielBrittany, Reg Reg mr Serjio Kiran, RN RN jb4 Jordy Rodriguez RN RN jj7 Riaz Peck, SUPERINTENDENT POLICE-C SUPERINTENDENT POLICE-Cdr5
[2024-03-22 01:12] VITALS: O2SAT 96
[2024-03-22 01:13] VITALS: BP 141/80
--- NOTE | 2024-03-22 06:32 | RAD REPORT ---
EXAM: Chest Pa And Lat (2 Views) CLINICAL INDICATION: 39-year-old female with congestion and cough. TECHNIQUE: Two-view, PA and lateral projections of the chest were obtained. COMPARISON: None. FINDINGS: Unremarkable cardiac and mediastinal silhouette. Heart size is normal. Mild interstitial prominence m ay be seen with viral/atypical infectious process. Low lung volumes without focal opacity, pneumothorax or pleural effusions. The visualized bones are within normal limits. IMPRESSION: Mild interstitial prominence may be seen with viral/atypical infectious process. Electronically signed by: Magi Cruz MD 03/22/2024 12:03 AM [facility] Due to temporary technical issues with the [employer] reporting system, reports are being allyssa d by the in-house radiologist without review as a courtesy to ensure prompt reporting the interpreting radiologist is fully responsible for the content of the report. Transcribed Date/Time: 03/22/2024 6:32 AM
== END 2024-03-22 01:01 | disposition home or self-care (01) ==
LOC: ER 22:27
DX: J06.9 Acute upper respiratory infection, unspecified (principal); F17.210 Nicotine dependence, cigarettes, uncomplicated; Z11.52 Encounter for screening for COVID-19
CPT/HCPCS: 36415; 87804 ×2; 71046; 96372; 99284; 87811; J1100